=== PATIENT | female | born 1950 | race Caucasian/White ===

== ENCOUNTER → 2018-03-31 | Outpatient (CLI) | payer OTHER ==
[~2018-03-31] MED LIST: ALUMSUS2 PO; ASPI81TA28 PO; DEXT30TA7 PO; DEXTSYP41 PO; FLNIN NAE; GADAVIST IV PRN; LISI-1116 PO; OMEP40CA PO; RANI150T85 PO; TRIA37.5 PO
--- NOTE | 2018-03-31 13:51 | DIAGNOSTIC IMAGING REPORT ---
MRI OF THE BRAIN COMBO INTERNAL AUDITORY CANAL PROTOCOL CLINICAL HISTORY: Vertigo. Right-sided hearing loss. Dermatitis of the right external auditory canal. COMPARISON STUDY: CT of the brain dated 01/10/2016. TECHNIQUE: MRI of the brain was performed utilizing various T1 and T2-weighted sequences in the axial, sagittal, and coronal planes. Contrast-enhanced sequences were acquired following the administration of 11 cc of Gadavist. Additional high-resolution imaging was performed through the skull base both pre and post contrast to further assess the internal auditory canals. FINDINGS: Brain parenchyma: There is minimal subcortical and periventricular microangiopathic disease. There is no hemorrhage or mass effect. There is no restricted diffusion to suggest acute ischemia. No enhancing mass lesion is identified on the postcontrast images. Holcomb-white matter differentiation is preserved. No extra-axial fluid collection is seen. The cerebellar tonsils are normal in configuration. Ventricles, sulci, and cisterns: Normal in configuration. Internal auditory canals: There is no enhancing mass lesion identified in the cerebellopontine angle bilaterally. No mass or abnormal enhancement is identified along the course of the internal auditory canals. Fluid is noted in the right middle ear. The external auditory canals are grossly normal as visualized. Pituitary and sella: Unremarkable. Intracranial vasculature: Normal flow voids are maintained at the skull base. Orbits: The bony orbits are grossly intact. Orbital contents are normal in appearance. Sinuses and mastoids: There is a large right mastoid effusion. The left mastoid air cells are clear, as are the paranasal sinuses. Calvarium: Unremarkable. Cervical cord: Partially visualized cervical spinal cord is normal in morphology and signal intensity. IMPRESSION: 1. No acute intracranial abnormality. 2. Large right mastoid effusion. 3. Fluid is noted in the right middle ear. Electronically signed by: Abdirizak Samayoa M.D. 03/31/2018 1:50 PM Dictated Date/Time: 03/31/2018 1:40 PM
== END | disposition home or self-care (01) ==
LOC: C.MRIBC 11:57
PROVIDERS: ATTEND Physician Assistant
DX: H60.541 Acute eczematoid otitis externa, right ear (principal); H65.91 Unspecified nonsuppurative otitis media, right ear; H90.5 Unspecified sensorineural hearing loss; H90.3 Sensorineural hearing loss, bilateral

== ENCOUNTER 2021-04-01 12:12 | Observation (INO) ==
[2021-04-01] MEDS ORDERED: SODIUM CHLORIDE 0.9% 1000ML 1,000 ML IV ONE (14:10)
[2021-04-01] MEDS ORDERED: CIPROFLOXACIN / D5W 400 MG/200 ML BAG IV STA (14:10)
[2021-04-01] MEDS ORDERED: diphenhydrAMINE 50 MG/ML VIAL IV STA (14:10)
[2021-04-01] MEDS ORDERED: MoRPHine SULFATE 4 MG/ML 1 ML CARP\\VIAL IV PRN (14:10)
[2021-04-01] MEDS ORDERED: ONDANSETRON INJ 2 MG/ML 2 ML VIAL IV STA (14:10)
[2021-04-01] MEDS ORDERED: metroNIDAZOLE 500 MG/100 ML BAG IV STA (14:10)
--- NOTE | 2021-04-01 14:16 | Emergency Department Note ---
Impression & Plan Lower abdominal pain, Acute diverticulitis, Vomiting, Failure of outpatient treatment ED Provider Note NAME: SARA PARIKH AGE: 70 SEX: F : 1950 ARRIVES VIA: Walk-In INFORMANT: [Patient] ED PROVIDER(S): [Abdirizak Moon MD] CHIEF COMPLAINT: Abdominal pain HISTORY OF PRESENT ILLNESS: The patient is a 70-year-old female presents to the ER with 4 days of bilateral lower abdominal pain. The pain is worse if there is pressure applied to the abdomen or if she sits or if she walks around. The pain is a 10/10. No pain radiation. There has been some nausea and vomiting, she has had fever and chills. Patient went to her doctor's office yesterday. She had a CT scan performed showing diverticulitis. She was started on Cipro and Flagyl but, she is vomiting these medications. She was directed to come to the ED because of her current situation. Patient has not had urinary symptoms. There has been no cough or congestion or chest pain. No shortness of breath. She has never had diverticulitis before. REVIEW OF SYSTEMS: See HPI for pertinent positives and negatives. A total of ten systems were reviewed and were otherwise negative. PMHx/PSHx: See Below SOCIAL HISTORY: See Below. PHYSICAL EXAM: GENERAL: Patient is in no acute distress. HEENT: No acute trauma, normocephalic atraumatic, mucous membranes moist, no nasal congestion, no scleral icterus. NECK: No stridor, no adenopathy, no meningismus, trachea is midline. LUNGS: Clear to auscultation bilaterally, no wheeze, no rhonchi, breath sounds equal. HEART: 2/6 systolic murmur, regular rate and rhythm. ABDOMEN: Soft, significantly tender in the lower abdomen, mostly on the left, bowel sounds positive, no hernias, no peritonitis. EXTREMITIES: No cyanosis or edema, full range of motion of all the joints without pain or difficulty, no signs for acute trauma. NEUROLOGIC: Oriented x 3, no acute motor or sensory deficits, no focal weakness. SKIN: No rash, no jaundice, no diaphoresis. DIFFERENTIAL DIAGNOSIS: Appendicitis, ovarian cyst, ovarian torsion, infections, diverticulitis, UTI, obstruction, mesenteric ischemia, aortic pathology, inflammatory bowel disease, renal colic, PUD, pancreatitis, biliary pathology, hernia, volvulus, constipation, as well as other pathologies. EMERGENCY DEPARTMENT COURSE/PROCEDURES: ECG: Indication was abdominal pain. The ECG shows a normal sinus rhythm with a rate of 70. There is no ST elevation, no PVCs. The QTc is 447. Continuous Cardiac Monitoring: An order was placed for continuous cardiac monitoring. The monitor shows a rate of 76 with normal sinus rhythm. MEDICAL DECISION MAKING: There is a mild leukocytosis which could be consistent with infection. There is a normal hemoglobin and platelet count. Potassium slightly low, sodium is slightly low. No kidney failure. No concerning liver enzyme elevation. No evidence for pancreatitis. ECG shows a sinus rhythm, no acute ischemia. Cardiac enzyme testing x1 is not consistent with acute cardiac injury. Urinalysis shows evidence for some contamination, no obvious infection. Covid and influenza testing were negative. I was able to review the CT performed yest erday, a mild case of diverticulitis was seen, there was no evidence for abscess or perforation. By exam, there was no peritonitis. The patient was given IV saline, 1 L. She was given IV Zofran for nausea. She was given IV Cipro and IV Flagyl. She received IV Benadryl. She received IV morphine for pain control. The patient has acute diverticulitis. She is unable to take her medications for this diagnosis. She is vomiting. She has failed outpatient treatment. I do think hospitalization is warranted. I spoke to the patient and case management. The on-call hospitalist was consulted. Past Med/Surg History Medical History Diabetes BORDERLINE-DIET MANAGED GERD (gastroesophageal reflux disease) Hiatal hernia HTN (hypertension) Obese Tachycardia Thoracic back pain Thoracic spinal stenosis Surgical History H/O cardiac radiofrequency ablation 2012 H/O knee surgery OPEN LEFT KNEE History of cardiac cath 2003-NO STENTS NEEDED History of carpal tunnel release of both wrists R/L History of cholecystectomy History of colonoscopy History of esophagogastroduodenoscopy (EGD) History of hysterectomy History of shoulder surgery R/L History of total knee arthroplasty R/L Family History Grandmother (Paternal) Family history of diabetes mellitus Brother Family history of diabetes mellitus Social History Smoking Status: Never smoker Second Hand Exposure: No; Do You Dip or Chew Tobacco: No; Tobacco Cessation Education Requested by Patient: No Hx Alcohol Use: No Hx Substance Use: No Preferred Language: Armenian Communication Ability: Effective Visual Impairment: No Limitations Letter Of Credit Document Examiner Required: No Beliefs That Will Affect Care: None marital status: Current Living Situation: Family Current Living Situation Comment: LIVES WITH SON AND DAUGHTER IN LAW current occupational status: retired Other Information That Helps Us Care for You: No Feels Safe at Home: Yes Safety Concerns: Feels Safe At This Time Assistive Devices: Glasses Allergies Allergies Allergy/AdvReac Type Severity Reaction Status Date / Time amoxicillin [From Augmentin] Allergy Severe Rash Verified 04/01/21 17:21 clavulanic acid Allergy Severe Rash Verified 04/01/21 17:21 [From Augmentin] gabapentin Allergy Intermediate Severe rash Verified 04/01/21 17:21 hydrocodone AdvReac Severe Nausea/ Verified 04/01/21 17:21 vomiting oxycodone AdvReac Intermediate GI SYMPTOMS Verified 04/01/21 17:21 Home Meds Home Medications Medication Instructions Recorded Confirmed albuterol sulfate 2.5 mg INHALATION Q4H PRN 04/01/21 04/01/21 aspirin [Aspir-Low] 81 mg PO DAILY 04/01/21 04/01/21 ciprofloxacin HCl [Cipro] 500 mg PO BID 04/01/21 04/01/21 famotidine [Pepcid] 20 mg PO DAILY 04/01/21 04/01/21 fluticasone propionate 2 spray INTRANASAL DAILY PRN 04/01/21 04/01/21 lisinopril 5 mg PO DAILY 04/01/21 04/01/21 metoprolol succinate [Toprol XL] 12.5 mg PO DAILY 04/01/21 04/01/21 metronidazole [Flagyl] 500 mg PO TID 04/01/21 04/01/21 omeprazole 20 mg PO BID 04/01/21 04/01/21 ondansetron HCl 4 mg PO Q8H PRN 04/01/21 04/01/21 triamterene-hydrochlorothiazid 1 cap PO DAILY 04/01/21 04/01/21 Results & Data (ED) Vital Signs Vital Signs - 24 hr 04/01/21 12:18 04/01/21 14:20 04/01/21 14:29 Temperature 36.7 C Temperature Source Temporal Artery Scan Pulse Rate 76 73 72 Pulse Rate from SpO2 Sensor Pulse Rhythm Regular Pulse Strength Normal Respiratory Rate 18 16 18 Respiratory Effort / Characteristics Non-Labored Spontaneous Respiratory Depth Normal Respiratory Pattern Regular Blood Pressure 156/84 H 147/69 H Blood Pressure Mean 108 95 Blood Pressure Position Sitting Pulse Oximetry 95 Oxygen Delivery Method Room Air Room Air Room Air Sepsis Recent Fever Within 48 Hours No Sepsis New/Unexplained Change in Mental Status N/A Sepsis Action Taken by Nursing No Action Required 04/01/21 14:30 04/01/21 14:40 04/01/21 14:50 Temperature Temperature Source Pulse Rate 71 71 74 Pulse Rate from SpO2 Sensor 74 Pulse Rhythm Pulse Strength Respiratory Rate 16 23 17 Respiratory Effort / Characteristics Respiratory Depth Respiratory Pattern Blood Pressure Blood Pressure Mean Blood Pressure Position Pulse Oximetry 97 Oxygen Delivery Method Room Air Room Air Room Air Sepsis Recent Fever Within 48 Hours Sepsis New/Unexplained Change in Mental Status Sepsis Action Taken by Nursing 04/01/21 15:00 04/01/21 15:10 04/01/21 15:20 Temperature Temperature Source Pulse Rate 70 69 73 Pulse Rate from SpO2 Sensor 70 70 75 Pulse Rhythm Pulse Strength Respiratory Rate 16 18 24 Respiratory Effort / Characteristics Respiratory Depth Respiratory Pattern Blood Pressure 143/75 H Blood Pressure Mean 97 Blood Pressure Position Pulse Oximetry 97 94 93 Oxygen Delivery Method Room Air Room Air Room Air Sepsis Recent Fever Within 48 Hours Sepsis New/Unexplained Change in Mental Status Sepsis Action Taken by Nursing 04/01/21 15:30 04/01/21 15:40 04/01/21 15:50 Temperature Temperature Source Pulse Rate 70 67 71 Pulse Rate from SpO2 Sensor Pulse Rhythm Pulse Strength Respiratory Rate 21 18 23 Respiratory Effort / Characteristics Respiratory Depth Respiratory Pattern Blood Pressure Blood Pressure Mean Blood Pressure Position Pulse Oximetry Oxygen Delivery Method Room Air Room Air Room Air Sepsis Recent Fever Within 48 Hours Sepsis New/Unexplained Change in Mental Status Sepsis Action Taken by Nursing 04/01/21 16:00 04/01/21 16:01 04/01/21 16:10 Temperature Temperature Source Pulse Rate 66 67 67 Pulse Rate from SpO2 Sensor 67 Pulse Rhythm Pulse Strength Respiratory Rate 17 22 18 Respiratory Effort / Characteristics Respiratory Depth Respiratory Pattern Blood Pressure 136/91 Blood Pressure Mean 106 Blood Pressure Position Pulse Oximetry 95 Oxygen Delivery Method Room Air Room Air Room Air Sepsis Recent Fever Within 48 Hours Sepsis New/Unexplained Change in Mental Status Sepsis Action Taken by Nursing 04/01/21 16:20 04/01/21 16:30 04/01/21 16:31 Temperature Temperature Source Pulse Rate 65 69 67 Pulse Rate from SpO2 Sensor 65 69 68 Pulse Rhythm Pulse Strength Respiratory Rate 18 18 21 Respiratory Effort / Characteristics Respiratory Depth Respiratory Pattern Blood Pressure 80/64 L Blood Pressure Mean 69 Blood Pressure Position Pulse Oximetry 94 94 94 Oxygen Delivery Method Room Air Room Air Room Air Sepsis Recent Fever Within 48 Hours Sepsis New/Unexplained Change in Mental Status Sepsis Action Taken by Nursing 04/01/21 16:40 04/01/21 16:45 04/01/21 16:50 Temperature Temperature Source Pulse Rate 64 70 71 Pulse Rate from SpO2 Sensor 65 69 71 Pulse Rhythm Pulse Strength Respiratory Rate 18 16 21 Respiratory Effort / Characteristics Respiratory Depth Respiratory Pattern Blood Pressure 125/75 Blood Pressure Mean 91 Blood Pressure Position Pulse Oximetry 94 97 94 Oxygen Delivery Method Room Air Room Air Room Air Sepsis Recent Fever Within 48 Hours Sepsis New/Unexplained Change in Mental Status Sepsis Action Taken by Nursing 04/01/21 17:00 04/01/21 17:01 04/01/21 17:10 Temperature Temperature Source Pulse Rate 65 67 67 Pulse Rate from SpO2 Sensor 65 67 67 Pulse Rhythm Pulse Strength Respiratory Rate 23 19 23 Respiratory Effort / Characteristics Respiratory Depth Respiratory Pattern Blood Pressure 127/43 L Blood Pressure Mean 71 Blood Pressure Position Pulse Oximetry 98 97 97 Oxygen Delivery Method Room Air Room Air Room Air Sepsis Recent Fever Within 48 Hours Sepsis New/Unexplained Change in Mental Status Sepsis Action Taken by Nursing 04/01/21 17:20 04/01/21 17:30 04/01/21 17:31 Temperature Temperature Source Pulse Rate 64 64 64 Pulse Rate from SpO2 Sensor 64 64 63 Pulse Rhythm Pulse Strength Respiratory Rate 15 15 15 Respiratory Effort / Characteristics Respiratory Depth Respiratory Pattern Blood Pressure 138/77 Blood Pressure Mean 97 Blood Pressure Position Pulse Oximetry 95 94 95 Oxygen Delivery Method Sepsis Recent Fever Within 48 Hours Sepsis New/Unexplained Change in Mental Status Sepsis Action Taken by Nursing 04/01/21 17:40 04/01/21 17:50 04/01/21 18:00 Temperature Temperature Source Pulse Rate 66 67 68 Pulse Rate from SpO2 Sensor 66 67 68 Pulse Rhythm Pulse Strength Respiratory Rate 20 15 19 Respiratory Effort / Characteristics Respiratory Depth Respiratory Pattern Blood Pressure Blood Pressure Mean Blood Pressure Position Pulse Oximetry 93 98 96 Oxygen Delivery Method Room Air Sepsis Recent Fever Within 48 Hours Sepsis New/Unexplained Change in Mental Status Sepsis Action Taken by Nursing 04/01/21 18:01 04/01/21 18:10 04/01/21 18:20 Temperature Temperature Source Pulse Rate 68 66 69 Pulse Rate from SpO2 Sensor 67 67 Pulse Rhythm Pulse Strength Respiratory Rate 18 17 24 Respiratory Effort / Characteristics Respiratory Depth Respiratory Pattern Blood Pressure 133/71 Blood Pressure Mean 91 Blood Pressure Position Pulse Oximetry 95 94 Oxygen Delivery Method Room Air Room Air Room Air Sepsis Recent Fever Within 48 Hours Sepsis New/Unexplained Change in Mental Status Sepsis Action Taken by Nursing 04/01/21 18:30 04/01/21 18:31 04/01/21 18:32 Temperature Temperature Source Pulse Rate 69 67 67 Pulse Rate from SpO2 Sensor 68 66 67 Pulse Rhythm Pulse Strength Respiratory Rate 16 14 16 Respiratory Effort / Characteristics Respiratory Depth Respiratory Pattern Blood Pressure 142/76 H Blood Pressure Mean 98 Blood Pressure Position Pulse Oximetry 94 94 95 Oxygen Delivery Method Room Air Room Air Sepsis Recent Fever Within 48 Hours Sepsis New/Unexplained Change in Mental Status Sepsis Action Taken by [facility] Medications Current Medication List: was personally reviewed by me Laboratory Data Attestation: I reviewed the patient's lab results. Result diagrams: 04/01/21 14:34 04/01/21 14:34 Lab Results 04/01/21 04/01/21 04/01/21 Range/Units 14:34 14:34 14:34 WBC 10.87 H (4.8-10.8) K/uL RBC 4.82 (4.2-5.4) M/uL Hgb 13.2 (12.0-16.0) g/dL Hct 38.3 (37-47) % MCV 79.5 L (80-100) fL MCH 27.4 (25-34) pg MCHC 34.5 (32-36) g/dL RDW Std Deviation 37.3 (36.4-46.3) fL RDW Coeff of Howard 12.9 (11.5-14.5) % Plt Count 243 (130-400) K/uL MPV 10.4 (7.4-10.4) fL Immature Gran % (Auto) 0.2 % Neut % (Auto) 75.3 % Lymph % (Auto) 13.8 % [place] % (Auto) 9.2 % Eos % (Auto) 1.3 % Baso % (Auto) 0.2 % Neut # (Auto) 8.19 H (1.4-6.5) K/uL Lymph # (Auto) 1.50 (1.2-3.4) K/uL [place] # (Auto) 1.00 H (0.11-0.59) K/uL Eos # (Auto) 0.14 (0-0.5) K/uL Baso # (Auto) 0.02 (0-0.2) K/uL Immature Gran # (Auto) 0.02 (0.00-0.02) K/uL Sodium 132 L (136-145) mmol/L Potassium 3.4 L (3.5-5.1) mmol/L Chloride 93 L (98-107) mmol/L Carbon Dioxide 32 (21-32) mmol/L Anion Gap 7.0 (3-11) BUN 11 (7-18) mg/dl Creatinine 0.80 (0.6-1.2) mg/dl Est Cr Clr Drug Dosing 74.1 ml/min Est GFR ( Amer) 86.6 Est GFR (Non-Af Amer) 74.7 BUN/Creatinine Ratio 13.4 (10-20) Glucose 124 H (70-99) mg/dl Calcium 9.5 (8.5-10.1) mg/dl Total Bilirubin 0.9 (0.2-1) mg/dl AST 12 L (15-37) U/L ALT 21 (12-78) U/L Alkaline Phosphatase 108 (45-117) U/L Troponin I < 0.015 (0-0.045) ng/ml Total Protein 7.7 (6.4-8.2) gm/dl Albumin 3.5 (3.4-5.0) gm/dl Globulin 4.2 H (2.5-4.0) gm/dl Albumin/Globulin Ratio 0.8 L (0.9-2) Lipase 125 (73-393) U/L COVID-19 Eval Order SARS-CoV-2 (PCR) (Negative) Influenza Type A (PCR) (Neg) Influenza Type B (PCR) (Neg) RSV (RT-PCR) (Neg) 04/01/21 04/01/21 Range/Units 15:23 15:23 WBC (4.8-10.8) K/uL RBC (4.2-5.4) M/uL Hgb (12.0-16.0) g/dL Hct (37-47) % MCV (80-100) fL MCH (25-34) pg MCHC (32-36) g/dL RDW Std Deviation (36.4-46.3) fL RDW Coeff of Howard (11.5-14.5) % Plt Count (130-400) K/uL MPV (7.4-10.4) fL Immature Gran % (Auto) % Neut % (Auto) % Lymph % (Auto) % [place] % (Auto) % Eos % (Auto) % Baso % (Auto) % Neut # (Auto) (1.4-6.5) K/uL Lymph # (Auto) (1.2-3.4) K/uL [place] # (Auto) (0.11-0.59) K/uL Eos # (Auto) (0-0.5) K/uL Baso # (Auto) (0-0.2) K/uL Immature Gran # (Auto) (0.00-0.02) K/uL Sodium (136-145) mmol/L Potassium (3.5-5.1) mmol/L Chloride (98-107) mmol/L Carbon Dioxide (21-32) mmol/L Anion Gap (3-11) BUN (7-18) mg/dl Creatinine (0.6-1.2) mg/dl Est Cr Clr Drug Dosing ml/min Est GFR ( Amer) Est GFR (Non-Af Amer) BUN/Creatinine Ratio (10-20) Glucose (70-99) mg/dl Calcium (8.5-10.1) mg/dl Total Bilirubin (0.2-1) mg/dl AST (15-37) U/L ALT (12-78) U/L Alkaline Phosphatase (45-117) U/L Troponin I (0-0.045) ng/ml Total Protein (6.4-8.2) gm/dl Albumin (3.4-5.0) gm/dl Globulin (2.5-4.0) gm/dl Albumin/Globulin Ratio (0.9-2) Lipase (73-393) U/L COVID-19 Eval Order CovFluRsv at [facility] SARS-CoV-2 (PCR) NEGATIVE (Negative) Influenza Type A (PCR) Negative (Neg) Influenza Type B (PCR) Negative (Neg) RSV (RT-PCR) Negative (Neg) Administered Medications Metronidazole (Flagyl) 500 mg in 100 mls @ 100 mls/hr IV Q8 TAISHA; Protocol Stop: 04/11/21 21:59 Last Admin: 04/01/21 22:39 Dose: 100 mls/hr Documented by: [id number] Sodium Chloride (Nss 1000ml) 1,000 mls @ 80 mls/hr IV .[id number] TAISHA Stop: 04/02/21 20:37 Last Admin: 04/01/21 21:57 Dose: 80 mls/hr Documented by: [id number] Potassium Chloride (K Fermin / Wtr) 10 meq in 100 mls @ 100 mls/hr IV Q1H TAISHA Stop: 04/01/21 23:29 Last Admin: 04/01/21 22:39 Dose: 100 mls/hr Documented by: [id number] Morphine Sulfate (Morphine Sulfate 4 Mg/Ml 1 Ml Carp\Vial) 4 mg IV Q30M PRN PRN Reason: Pain Stop: 04/15/21 14:09 Last Admin: 04/01/21 14:50 Dose: 4 mg Documented by: [id number] Pantoprazole Sodium (Pantoprazole 40 Mg Tab) 40 mg PO BID TAISHA Stop: 05/01/21 20:59 Last Admin: 04/01/21 22:37 Dose: Not Given Documented by: [id number] Discontinued Medications Diphenhydramine HCl (Diphenhydramine 50 Mg/Ml Vial) 12.5 mg IV NOW STA Stop: 04/01/21 14:11 Last Admin: 04/01/21 14:50 Dose: 12.5 mg Documented by: [id number] Sodium Chloride (Nss 1000ml) 1,000 mls @ 999 mls/hr IV .[id number] ONE Stop: 04/01/21 15:10 Last Infusion: 04/01/21 15:58 Dose: 0 mls/hr Documented by: [id number] Admin: 04/01/21 14:50 Dose: 999 mls/hr Documented by: [id number] Ciprofloxacin (Cipro / D5w) 400 mg in 200 mls @ 100 mls/hr IV NOW STA; Protocol Stop: 04/01/21 16:09 Last Infusion: 04/01/21 17:04 Dose: 0 mls/hr Documented by: [id number] Admin: 04/01/21 14:57 Dose: 100 mls/hr Documented by: [id number] Metronidazole (Flagyl) 500 mg in 100 mls @ 100 mls/hr IV NOW STA Stop: 04/01/21 15:09 Last Infusion: 04/01/21 15:58 Dose: 0 mls/hr Documented by: [id number] Admin: 04/01/21 14:54 Dose: 100 mls/hr Documented by: [id number] Promethazine HCl 12.5 mg/ (Sodium Chloride) 50.5 mls @ 202 mls/hr IV TODAY@2145 ONE Stop: 04/01/21 21:59 Last Infusion: 04/01/21 22:52 Dose: 0 mls/hr Documented by: [id number] Admin: 04/01/21 21:57 Dose: 202 mls/hr Documented by: [id number] Ondansetron HCl (Ondansetron Inj 2 Mg/Ml 2 Ml Vial) 4 mg IV NOW STA Stop: 04/01/21 14:11 Last Admin: 04/01/21 14:50 Dose: 4 mg Documented by: [id number] Ondansetron HCl (Ondansetron Inj 2 Mg/Ml 2 Ml Vial) Confirm Administered Dose 4 mg .ROUTE .STK-MED ONE Stop: 04/01/21 19:34 Last Admin: 04/01/21 19:34 Dose: 4 mg Documented by: [id number] Discharge Plan Visit Data Chief Complaint: Vomiting Stated Complaint: DIVERTICULTIS, UPSET STOMACH, VOMITING, DIZZY ED Provider: Abdirizak Moon Discharge Problem: Lower abdominal pain, Acute diverticulitis, Vomiting, Failure of outpatient treatment Patient Disposition: Admitted As Inpatient Condition: Fair Discharge Instructions Interventions: ED Discharge Assessment Last Done: 04/01/21 20:13 Discharge Problem: Vomiting Qualifiers: Vomiting type: unspecified Vomiting Intractability: non-intractable Nausea presence: with nausea Qualified Code(s): R11.2 - Nausea with vomiting, unspecified
[2021-04-01 14:48] LABS: Basophils # (auto) 0.02 K/uL (0-0.2); Basophils % (auto) 0.2 %; Eosinophils # (auto) 0.14 K/uL (0-0.5); Eosinophils % (auto) 1.3 %; Hematocrit (blood only) 38.3 % (37-47); Hemoglobin 13.2 g/dL (12.0-16.0); Immature Granulocytes # (auto) 0.02 K/uL (0.00-0.02); Immature Granulocytes % (auto) 0.2 %; Lymphocytes % (auto) 13.8 %; Mean Corpuscular Hemoglobin 27.4 pg (25-34); Mean Corpuscular Hgb Conc 34.5 g/dL (32-36); Mean Corpuscular Volume 79.5 fL (80-100); Mean Platelet Volume 10.4 fL (7.4-10.4); Monocytes % (auto) 9.2 %; Neutrophils # (auto) 8.19 K/uL (1.4-6.5); Neutrophils % (auto) 75.3 %; Platelet Count 243 K/uL (130-400); RDW Coefficient of Variation 12.9 % (11.5-14.5); RDW Standard Deviation 37.3 fL (36.4-46.3); Red Blood Count 4.82 M/uL (4.2-5.4); White Blood Count 10.87 K/uL (4.8-10.8)
[2021-04-01 15:05] LABS: Albumin Level 3.5 gm/dl (3.4-5.0); BUN Creatinine Ratio 13.4 (10-20); Calcium 9.5 mg/dl (8.5-10.1); Creatinine Clr Calc Pharmacy 74.1 ml/min; Est GFR (African American) 86.6; Est GFR (Non-African American) 74.7; Potassium 3.4 mmol/L (3.5-5.1)
[2021-04-01 15:08] LABS: Albumin Globulin Ratio 0.8 (0.9-2); Bilirubin,Total 0.9 mg/dl (0.2-1); Globulin 4.2 gm/dl (2.5-4.0); Total Protein 7.7 gm/dl (6.4-8.2)
[2021-04-01 16:13] LABS: Influenza A virus by PCR Negative (Neg); Influenza B virus by PCR Negative (Neg); RSV by PCR Negative (Neg); SARS CoV2 RNA(COVID-19) InHosp NEGATIVE (Negative)
--- NOTE | 2021-04-01 16:38 | History & Physical Report ---
Date of Service April 01, 2021 Assessment & Plan (1) Diverticulitis: -Admit to med surg -CT abdomen pelvis without IV/oral contrast done on as an outpatient was reviewed, shows acute diverticulitis/colitis. No free air or fluid collection. Hepatomegaly with hepatic steatosis. -Patient has been unable to manage p.o. antibiotic due to intractable n/v, will transition to IV Cipro and Flagyl during hospital stay -Maintenance hydration with NSS at 80 mL/h -Allow clear liquid diet as tolerated -WBC was 12.62 yesterday as outpatient, 10.37 today on admission. -Potassium 3.2 and will replace, sodium slightly low likely due to hydration -Antiemetics, Tylenol -Will require GI follow-up as outpatient with a flexible sigmoidoscopy once acute diverticulitis resolved (2) HTN (hypertension): -Continue lisinopril 5 mg daily, metoprolol succinate 12.5 mg daily, Maxide 1 Daily, baby aspirin (3) Diabetes: -Last A1c of 6.2 on 11/12/2020, not on medication, diet controlled -Monitor with a.m. BMP (4) GERD (gastroesophageal reflux disease): -Continue omeprazole and famotidine (5) Obese: -BMI 44.9, diet and exercise encouraged (6) DVT prophylaxis: - teds, scds, ambulatory CODE: Full Dispo: From home, likely to remain in the hospital x 1-2 days History of Present Illness Primary Care Provider: Estefany Asencio DO This is a 70 yo F with PMHx of HTN, borderline DM, obesity with BMI of 44.9 and GERD who presents with acute onset of abdominal pain. Reports that she developed diarrhea last Wednesday into and then had worsening lower abdominal pain specifically developed on Wednesday evening. At that point she began to have a poor appetite, nausea and started vomiting. She suffered with this through the weekend and called her PCP on Wednesday morning and had worsening abdominal pain in the lower quadrants. Pt reports some sweats and chills but no documented fever at home. She was seen and had a outpatient CT abdomen/pelvis completed which showed an acute diverticulitis. She was prescribed p.o. Cipro and Flagyl and sent home. Since then the patient has continued to be nauseous, vomiting and unable to tolerate her p.o. meds. Last time she took any of her scheduled medications was yesterday morning. Abdominal pain is well controlled presently after a dose of morphine in the ER. White count slightly elevated at 10.37, potassium 3.2, sodium 132, negative Covid. Allergies Allergy/AdvReac Type Severity Reaction Status Date / Time amoxicillin [From Augmentin] Allergy Severe Rash Verified 04/01/21 17:21 clavulanic acid Allergy Severe Rash Verified 04/01/21 17:21 [From Augmentin] gabapentin Allergy Intermediate Severe rash Verified 04/01/21 17:21 hydrocodone AdvReac Severe Nausea/ Verified 04/01/21 17:21 vomiting oxycodone AdvReac Intermediate GI SYMPTOMS Verified 04/01/21 17:21 Home Medications Medication Instructions Recorded Confirmed Type albuterol sulfate 2.5 mg INHALATION Q4H PRN 04/01/21 04/01/21 History aspirin [Aspir-Low] 81 mg PO DAILY 04/01/21 04/01/21 History ciprofloxacin HCl [Cipro] 500 mg PO BID 04/01/21 04/01/21 History famotidine [Pepcid] 20 mg PO DAILY 04/01/21 04/01/21 History fluticasone propionate 2 spray INTRANASAL DAILY PRN 04/01/21 04/01/21 History lisinopril 5 mg PO DAILY 04/01/21 04/01/21 History metoprolol succinate [Toprol XL] 12.5 mg PO DAILY 04/01/21 04/01/21 History metronidazole [Flagyl] 500 mg PO TID 04/01/21 04/01/21 History omeprazole 20 mg PO BID 04/01/21 04/01/21 History ondansetron HCl 4 mg PO Q8H PRN 04/01/21 04/01/21 History triamterene-hydrochlorothiazid 1 cap PO DAILY 04/01/21 04/01/21 History Past Med/Surg History Medical History (Updated 04/01/21 @ 16:45 by Ludy Toussaint PA-C) Diabetes BORDERLINE-DIET MANAGED GERD (gastroesophageal reflux disease) Hiatal hernia HTN (hypertension) Obese Tachycardia Thoracic back pain Thoracic spinal stenosis Surgical History H/O cardiac radiofrequency ablation 2012 H/O knee surgery OPEN LEFT KNEE History of cardiac cath 2004-NO STENTS NEEDED History of carpal tunnel release of both wrists R/L History of cholecystectomy History of colonoscopy History of esophagogastroduodenoscopy (EGD) History of hysterectomy History of shoulder surgery R/L History of total knee arthroplasty R/L Family History Grandmother (Paternal) Family history of diabetes mellitus Brother Family history of diabetes mellitus Social History (Updated 12/22/19 @ 09:40 by Amy Rosenthal RN) Smoking Status: Never smoker Second Hand Exposure: Yes (IN THE PAST); Hx Alcohol Use: No Hx Substance Use: No Preferred Language: Lithuanian Communication Ability: Effective Visual Impairment: No Limitations Electrophysiology Tech Required: No Beliefs That Will Affect Care: None marital status: Current Living Situation: Family current occupational status: retired Feels Safe at Home: Yes Assistive Devices: Glasses Review of Systems Review of Systems: Constitutional: No fever, sweats or chills, + fatigue Eyes: No diplopia, no worsening or blurred vision ENT: normal hearing, no trouble swallowing Respiratory: No cough, sputum, dyspnea at rest or on exertion Cardiovascular: No chest pain, tightness or palpitations Abdomen: As per HPI. Musculoskeletal: No joint pain, calf pain, swelling Neurologic: No weakness, numbness/tingling, or balance problems Psychiatric: No anxiety or depression Skin: No rash or itch Physical Exam Physical Exam: General: awake, alert, no apparent distress, obese with BMI 44.9 Head: Normocephalic, atraumatic ENT: PERRL, EOMI, no pharyngeal exudate, mucous membranes slightly dry Chest: Clear to auscultation, on room air, no adventitious breath sounds Cardiac: Regular rate and rhythm, no murmur, no JVD, normal peripheral pulses, good capillary refill Abdominal: Hypoactive bowel sounds, soft, nondistended, tender to palpation in the RLQ and suprapubic region after given IV pain meds, no rebound or guarding Extremities: Normal inspection, no peripheral edema or erythema, calfs nontender to palpation Psych: Normal mood and affect Neuro: AAO x 3, strength intact bilaterally and rated 5/5, no motor deficits, speech is clear, no peripheral sensory deficits Results & Data Results & Data ([facility]) Vital Signs (Past 12 Hours) Vital Signs Temp Pulse Resp BP Pulse Ox 04/01/21 12:18 36.7 C 76 18 156/84 H 95 Diagnostic Findings EXAM: CT ABD/PELVIS WO IV/ORAL CONTRAST DATE and TIME: 03/31/2021 1:32 pm HISTORY CLINICAL INFORMATION: rule out appendicitis TECHNIQUE Oral Contrast: Oral contrast was not administered. IV Contrast: No IV Contrast used Abdomen/Pelvis: without intravenous contrast COMPARISON CT ABDOMEN /PELVIS WITHOUT IV CONTRAST WITHOUT ORAL dated 11/03/2016; CT ABDOMEN WITHOUT IV CONTRAST-WITHOUT ORAL dated 05/14/2015; MRI ABDOMEN-KIDNEY WITH/WITHOUT CONTRAST dated 12/03/2014 FINDINGS LOWER CHEST: HEART(visualized): Unremarkable LUNG BASES: Bibasilar atelectasis. ABDOMEN/PELVIS: LINES AND DEVICES: None LIVER: The liver is enlarged measuring 19.6 cm in craniocaudal dimension. Low attenuation suggesting steatosis. BILE DUCTS: Unremarkable GALLBLADDER: Cholecystectomy. PANCREAS: Unremarkable SPLEEN: Unremarkable ADRENALS: Stable left adrenal nodules suggesting adenomas. KIDNEYS/URETERS: Unremarkable BLADDER: Unremarkable BOWEL: Distal colonic diverticulosis. Wall thickening involving a short segment of sigmoid colon. This may be partly related to incomplete distention. There is adjacent fat stranding. No free air. Findings suggesting acute diverticulitis/colitis. The appendix is within normal limits. LYMPH NODES: Unremarkable VESSELS: Atherosclerotic vascular calcification. REPRODUCTIVE ORGANS: Hysterectomy. PERITONEUM/RETROPERITONEUM: Unremarkable ABDOMINAL WALL/SOFT TISSUES: Small fat containing epigastric ventral hernia. BONES: Degenerative osseous changes. IMPRESSION IMPRESSION 1. Findings suggesting acute diverticulitis/colitis. No free air or fluid collection. Further evaluation by sigmoidoscopy recommended after resolution of acute symptoms to exclude any underlying mass. 2. Hepatomegaly with hepatic steatosis. Findings communicated to the ordering provider through tiger text. ECG Additional Comments: 01-APR-2021 15:01:00 [facility]-EDSTAT ROUTINE RETRIEVAL Normal sinus rhythm Normal ECG When compared with ECG of 15-OCT-2019 07:20, No significant change was found 25mm/s 10mm/mV 150Hz 9.0.9 12SL 241 DANIELLE: 15 Referred by: REFERRED SELF Unconfirmed Vent. rate 70 BPM WA interval 166 ms QRS duration 90 ms QT/QTc 414/447 ms Code Status & VTE Plan Code Status Full code - discussed with patient at bedside Supervising Physician Co-Signing Physician Notes Attending addendum: The patient was seen and examined in the emergency room Has been complaining of abdominal pain with some nausea since Wednesday last She was given Cipro and Flagyl for diverticulitis as an outpatient He could not keep the medications due to nausea and vomiting and increasing abdominal pain On examination In mild pain in the emergency room Hemodynamically stable Chest-clear Heart-S1-S2, neck Abdomen-mildly tender with rebound tenderness in left lower quadrant. Also present Extremities-negative for any edema Her admission labs, EKG and imaging studies from outpatient reviewed Has acute diverticulitis without any abscess and/or perforation and failed outpatient treatment with Agree with assessment and plan as outlined above by JULIA Lloyd DR
[2021-04-01] MEDS ORDERED: ONDANSETRON INJ 2 MG/ML 2 ML VIAL ONE (19:33)
[2021-04-01 19:42] LABS: Appearance Urine Clear (Clear); Bacteria Urine Automated Negative (Negative); Bilirubin Urine Negative (Negative); Blood Urine Negative (Negative); Color Urine Dark Yellow; Glucose Urine UA Negative (Negative); Ketones Urine Trace (Negative); Leukocyte Esterase Urine 1+ (Negative); Nitrite Urine Negative (Negative); Protein Urine Negative (Negative); Specific Gravity Urine 1.015 (1.000-1.030); Urobilinogen Urine Positive (Negative); pH Urine 6.5 (4.5-7.5)
[2021-04-01] MEDS ORDERED: PROCHLORPERAZINE 10 MG in SYRINGE 8 ML IV PRN (20:38)
[2021-04-01] MEDS ORDERED: ALBUTEROL 0.083% NEBU SOLN 3 ML VIAL INH PRN (20:38)
[2021-04-01] MEDS ORDERED: FLUTICASONE PROPIONATE NA SPR 16 GM BTL PRN (20:38)
[2021-04-01] MEDS ORDERED: ONDANSETRON INJ 2 MG/ML 2 ML VIAL IV PRN (20:38)
[2021-04-01] MEDS ORDERED: PROMETHAZINE HCL 12.5 MG in SODIUM CHLORIDE 0.9% 50 ML IV ONE (21:45)
[2021-04-01] MEDS: SODIUM CHLORIDE 0.9% 1000ML 1,000 ML IV SCH (21:57)
[2021-04-01] MEDS: PANTOprazole 40 MG TAB PO SCH (22:37)
[2021-04-01] MEDS: POTASSIUM CHLORIDE / WTR 10 MEQ/100 ML PLCT IV SCH ×2 (22:39→23:44)
[2021-04-01] MEDS: metroNIDAZOLE 500 MG/100 ML BAG IV SCH (22:39)
[2021-04-02] MEDS: metroNIDAZOLE 500 MG/100 ML BAG IV SCH ×3 (05:16→20:49)
[2021-04-02] MEDS: CIPROFLOXACIN / D5W 400 MG/200 ML BAG IV SCH ×2 (05:17→17:52)
[2021-04-02 05:58] LABS: Hematocrit (blood only) 35.7 % (37-47); Hemoglobin 12.3 g/dL (12.0-16.0); Mean Corpuscular Hemoglobin 27.2 pg (25-34); Mean Corpuscular Hgb Conc 34.5 g/dL (32-36); Mean Corpuscular Volume 78.8 fL (80-100); Platelet Count 245 K/uL (130-400); RDW Coefficient of Variation 12.9 % (11.5-14.5); RDW Standard Deviation 37.2 fL (36.4-46.3); Red Blood Count 4.53 M/uL (4.2-5.4); White Blood Count 7.57 K/uL (4.8-10.8)
[2021-04-02 06:44] LABS: Albumin Level 3.1 gm/dl (3.4-5.0); BUN Creatinine Ratio 16.7 (10-20); Calcium 8.6 mg/dl (8.5-10.1); Creatinine Clr Calc Pharmacy 96.1 ml/min; Est GFR (African American) 105.9; Est GFR (Non-African American) 91.4; Estimated Average Glucose 120 mg/dl; Hemoglobin A1C 5.8 % (4.5-5.6); Potassium 3.6 mmol/L (3.5-5.1)
[2021-04-02 06:47] LABS: Albumin Globulin Ratio 0.9 (0.9-2); Bilirubin,Total 0.7 mg/dl (0.2-1); Globulin 3.6 gm/dl (2.5-4.0); Total Protein 6.7 gm/dl (6.4-8.2)
--- NOTE | 2021-04-02 08:38 | Electrocardiogram Report ---
Test Reason : Blood Pressure : / mmHG Vent. Rate : 070 BPM Atrial Rate : 070 BPM P-R Int : 166 ms QRS Dur : 090 ms QT Int : 414 ms P-R-T Axes : 077 049 053 degrees QTc Int : 447 ms Normal sinus rhythm Normal ECG When compared with ECG of 15-OCT-2019 07:20, No significant change was found Confirmed by Michael Jones ([id number]) on 04/02/2021 8:38:17 AM Referred By: REFERRED SELF Confirmed By:Michael Jones
[2021-04-02] MEDS: TRIAMTERENE/HCTZ 37.5/25MG CAP PO SCH (08:39)
[2021-04-02] MEDS: PANTOprazole 40 MG TAB PO SCH ×2 (08:39→20:49)
[2021-04-02] MEDS: lisinopril 5 MG TAB PO SCH (08:40)
[2021-04-02] MEDS: ASPIRIN 81 MG ECTAB PO SCH (08:40)
[2021-04-02] MEDS: METOPROLOL SUCC 25MG EXT REL TAB PO SCH (08:40)
[2021-04-02] MEDS: FAMOTIDINE 20 MG TAB PO SCH (08:40)
[2021-04-02] MEDS: ACETAMINOPHEN 325 MG TAB PO PRN ×2 (10:56→15:22)
[2021-04-02] MEDS: SODIUM CHLORIDE 0.9% 1000ML 1,000 ML IV SCH (11:51)
--- NOTE | 2021-04-02 12:44 | Hospitalist Progress Note ---
Date of Service April 02, 2021 Assessment & Plan (1) Diverticulitis: Present on admission with abdominal pain associated with nausea and vomiting CT abdomen pelvis without IV/oral contrast done on as an outpatient was reviewed, shows acute diverticulitis/colitis. No free air or fluid collection. Hepatomegaly with hepatic steatosis. Pt was unable to take oral cipro and flagyl due to vomiting Will continue clear liquid diet WBC normalized Continue IV Cipro and flagyl Already scheduled for outpatient colonoscopy on 05/07 Continue pain control (2) HTN (hypertension): BP stable Continue lisinopril 5 mg daily, metoprolol succinate 12.5 mg daily, Maxide 1 Daily, baby aspirin (3) Diabetes: Most recent hab1c 5.8 on 04/02/21 Not on any diabetes med Continue monitor BS (4) GERD (gastroesophageal reflux disease): Continue omeprazole and famotidine (5) Obese: BMI 44.9, diet and exercise encouraged (6) DVT prophylaxis: - teds, scds, ambulatory CODE: Full Dispo: Will discharge home once medically stable Admission and Anticipated Discharge Date Admission Date: April 01, 2021 Subjective Pt was seen and examined for follow up of diverticulitis Sitting in chair with no distress Pt said that pain improves She said that she had one episode of vomiting last night Denies any chest pain, palpitation, dizziness and SOB Review of Systems Review of Systems: All systems reviewed & are unremarkable except as noted in Subjective Physical Exam Physical Exam: General- No acute distress Head- atraumatic Eyes- PERRL, EOMI, ENT- oropharynx clear Neck- supple, no JVD Lungs- clear to auscultation Heart- regular rhythm; no murmur Abdomen- normal bowel sounds, +mild tenderness Extremities- no calf tenderness Neuro- alert, oriented x 3; PERRL, EOMI; no facial palsy; no dysarthria Skin- warm & dry Results & Data Results & Data ([facility]) Vital Signs (Past 12 Hours) Vital Signs Temp Pulse Resp BP Pulse Ox 04/02/21 07:39 36.9 C 74 20 127/76 91
[2021-04-03] MEDS: CIPROFLOXACIN / D5W 400 MG/200 ML BAG IV SCH (05:39)
[2021-04-03] MEDS: metroNIDAZOLE 500 MG/100 ML BAG IV SCH ×2 (05:39→14:28)
[2021-04-03 05:52] LABS: Hematocrit (blood only) 37.3 % (37-47); Hemoglobin 12.7 g/dL (12.0-16.0); Mean Corpuscular Volume 79.4 fL (80-100); Mean Platelet Volume 9.8 fL (7.4-10.4); Platelet Count 243 K/uL (130-400); RDW Coefficient of Variation 12.9 % (11.5-14.5); RDW Standard Deviation 37.5 fL (36.4-46.3); White Blood Count 7.31 K/uL (4.8-10.8)
[2021-04-03 06:26] LABS: Albumin Level 3.3 gm/dl (3.4-5.0); Creatinine Clr Calc Pharmacy 85.1 ml/min; Est GFR (African American) 101.7; Est GFR (Non-African American) 87.8; Potassium 3.3 mmol/L (3.5-5.1)
[2021-04-03 06:28] LABS: Albumin Globulin Ratio 0.9 (0.9-2); Bilirubin,Total 0.5 mg/dl (0.2-1); Globulin 3.7 gm/dl (2.5-4.0)
[2021-04-03] MEDS: FAMOTIDINE 20 MG TAB PO SCH (08:51)
[2021-04-03] MEDS: PANTOprazole 40 MG TAB PO SCH ×2 (08:51→20:25)
[2021-04-03] MEDS: METOPROLOL SUCC 25MG EXT REL TAB PO SCH (08:51)
[2021-04-03] MEDS: ASPIRIN 81 MG ECTAB PO SCH (08:52)
[2021-04-03] MEDS: lisinopril 5 MG TAB PO SCH (08:52)
[2021-04-03] MEDS: TRIAMTERENE/HCTZ 37.5/25MG CAP PO SCH (08:52)
[2021-04-03] MEDS ORDERED: POTASSIUM CHLORIDE CRTAB 20 MEQ TABCR PO ONE (11:00)
--- NOTE | 2021-04-03 20:18 | Hospitalist Progress Note ---
Date of Service April 03, 2021 Assessment & Plan (1) Diverticulitis: Present on admission with abdominal pain associated with nausea and vomiting CT abdomen pelvis without IV/oral contrast done on as an outpatient was reviewed, shows acute diverticulitis/colitis. No free air or fluid collection. Hepatomegaly with hepatic steatosis. Pt was unable to take oral cipro and flagyl due to vomiting Will continue clear liquid diet WBC normalized On IV Cipro and Flagyl, will transition to PO abx tonight Tolerated low fiber diet Already scheduled for outpatient colonoscopy on 05/07 Continue pain control (2) HTN (hypertension): BP stable Continue lisinopril 5 mg daily, metoprolol succinate 12.5 mg daily, Maxide 1 Daily, baby aspirin (3) Diabetes: Most recent hab1c 5.8 on 04/02/21 Not on any diabetes med Continue monitor BS (4) GERD (gastroesophageal reflux disease): Continue omeprazole and famotidine (5) Obese: BMI 44.9, diet and exercise encouraged (6) DVT prophylaxis: - teds, scds, ambulatory CODE: Full Dispo: Plan to discharge home tomorrow Admission and Anticipated Discharge Date Admission Date: April 01, 2021 Subjective Pt was seen and examined for follow up of diverticulitis Sitting in chair with no distress Pt said that she does not have any pain She said that she tolerated diet with no distress Denies any chest pain, palpitation, dizziness and SOB Review of Systems Review of Systems: All systems reviewed & are unremarkable except as noted in Subjective Physical Exam Physical Exam: General- No acute distress Head- atraumatic Eyes- PERRL, EOMI, ENT- oropharynx clear Neck- supple, no JVD Lungs- clear to auscultation Heart- regular rhythm; no murmur Abdomen- normal bowel sounds, +mild tenderness Extremities- no calf tenderness Neuro- alert, oriented x 3; PERRL, EOMI; no facial palsy; no dysarthria Skin- warm & dry Results & Data Results & Data ([facility]) Vital Signs (Past 12 Hours) Vital Signs Temp Pulse Resp BP Pulse Ox 04/03/21 15:12 37.1 C 67 16 132/75 96
[2021-04-03] MEDS: metroNIDAZOLE 500 MG TAB PO SCH (20:25)
[2021-04-03] MEDS: CIPROFLOXACIN 500 MG TAB PO SCH (20:26)
[2021-04-04 07:58] LABS: Hematocrit (blood only) 35.9 % (37-47); Hemoglobin 12.6 g/dL (12.0-16.0); Mean Corpuscular Hemoglobin 27.5 pg (25-34); Mean Corpuscular Hgb Conc 35.1 g/dL (32-36); Mean Corpuscular Volume 78.4 fL (80-100); Mean Platelet Volume 10.1 fL (7.4-10.4); Platelet Count 254 K/uL (130-400); RDW Coefficient of Variation 12.8 % (11.5-14.5); RDW Standard Deviation 36.5 fL (36.4-46.3); Red Blood Count 4.58 M/uL (4.2-5.4); White Blood Count 11.25 K/uL (4.8-10.8)
[2021-04-04 08:27] LABS: Albumin Level 3.4 gm/dl (3.4-5.0); BUN Creatinine Ratio 8.3 (10-20); Calcium 9.3 mg/dl (8.5-10.1); Creatinine Clr Calc Pharmacy 87.6 ml/min; Est GFR (African American) 102.7; Est GFR (Non-African American) 88.6; Potassium 3.2 mmol/L (3.5-5.1)
[2021-04-04 08:30] LABS: Albumin Globulin Ratio 0.9 (0.9-2); Bilirubin,Total 0.6 mg/dl (0.2-1); Globulin 3.8 gm/dl (2.5-4.0); Total Protein 7.2 gm/dl (6.4-8.2)
[2021-04-04] MEDS: PANTOprazole 40 MG TAB PO SCH (08:30)
[2021-04-04] MEDS: ASPIRIN 81 MG ECTAB PO SCH (08:31)
[2021-04-04] MEDS: FAMOTIDINE 20 MG TAB PO SCH (08:31)
[2021-04-04] MEDS: TRIAMTERENE/HCTZ 37.5/25MG CAP PO SCH (08:34)
[2021-04-04] MEDS: METOPROLOL SUCC 25MG EXT REL TAB PO SCH (08:34)
[2021-04-04] MEDS: CIPROFLOXACIN 500 MG TAB PO SCH (08:35)
[2021-04-04] MEDS: lisinopril 5 MG TAB PO SCH (08:35)
[2021-04-04] MEDS: metroNIDAZOLE 500 MG TAB PO SCH ×2 (08:36→14:29)
[2021-04-04] MEDS ORDERED: ONDANSETRON 4 MG OD TAB PO PRN (10:22)
[2021-04-04] MEDS ORDERED: POTASSIUM CHLORIDE CRTAB 20 MEQ TABCR PO STA (10:32)
--- NOTE | 2021-04-04 14:55 | Hospitalist Progress Note ---
Date of Service April 04, 2021 Assessment & Plan (1) Diverticulitis: Present on admission with abdominal pain associated with nausea and vomiting CT abdomen pelvis without IV/oral contrast done on as an outpatient was reviewed, shows acute diverticulitis/colitis. No free air or fluid collection. Hepatomegaly with hepatic steatosis. Pt was unable to take oral cipro and flagyl due to vomiting Will continue clear liquid diet WBC normalized IV Cipro and Flagyl was transition to PO abx yesterday Tolerated low fiber diet Already scheduled for outpatient colonoscopy on 05/07 Clinically improves significantly (2) Hypokalemia: K 3.2 today K replaced Continue K supplement Check BMP in 1 week (3) HTN (hypertension): BP stable Continue lisinopril 5 mg daily, metoprolol succinate 12.5 mg daily, Maxide 1 Daily, baby aspirin (4) Diabetes: Most recent hab1c 5.8 on 04/02/21 Not on any diabetes med Continue monitor BS (5) GERD (gastroesophageal reflux disease): Continue omeprazole and famotidine (6) Obese: BMI 44.9, diet and exercise encouraged (7) DVT prophylaxis: - teds, scds, ambulatory CODE: Full Dispo: Plan to discharge home today Admission and Anticipated Discharge Date Admission Date: April 01, 2021 Subjective Pt was seen and examined for follow up of diverticulitis Sitting in chair with no distress Pt said that she had some nausea early this morning, but that helped after the zofran She said that she tolerated diet with no distress She would like to go home today Denies any chest pain, palpitation, dizziness and SOB Review of Systems Review of Systems: All systems reviewed & are unremarkable except as noted in Subjective Physical Exam Physical Exam: General- No acute distress Head- atraumatic Eyes- PERRL, EOMI, ENT- oropharynx clear Neck- supple, no JVD Lungs- clear to auscultation Heart- regular rhythm; no murmur Abdomen- normal bowel sounds, +mild tenderness Extremities- no calf tenderness Neuro- alert, oriented x 3; PERRL, EOMI; no facial palsy; no dysarthria Skin- warm & dry Results & Data Results & Data ([facility]) Vital Signs (Past 12 Hours) Vital Signs Temp Pulse Resp BP Pulse Ox Pulse Ox 04/04/21 08:34 85 150/83 H 96 04/04/21 07:25 155/90 H 04/04/21 07:23 37.1 C 83 16 96
--- NOTE | 2021-04-06 07:38 | Discharge Summary ---
Date of Service April 04, 2021 Admission HPI Per Admitting Provider This is a 70 yo F with PMHx of HTN, borderline DM, obesity with BMI of 44.9 and GERD who presents with acute onset of abdominal pain. Reports that she developed diarrhea last Wednesday into and then had worsening lower abdominal pain specifically developed on Wednesday evening. At that point she began to have a poor appetite, nausea and started vomiting. She suffered with this through the weekend and called her PCP on Wednesday morning and had worsening abdominal pain in the lower quadrants. Pt reports some sweats and chills but no documented fever at home. She was seen and had a outpatient CT abdomen/pelvis completed which showed an acute diverticulitis. She was prescribed p.o. Cipro and Flagyl and sent home. Since then the patient has continued to be nauseous, vomiting and unable to tolerate her p.o. meds. Last time she took any of her scheduled medications was yesterday morning. Abdominal pain is well controlled presently after a dose of morphine in the ER. White count slightly elevated at 10.37, potassium 3.2, sodium 132, negative Covid. Admission Exam Per Admitting Provider General: awake, alert, no apparent distress, obese with BMI 44.9 Head: Normocephalic, atraumatic ENT: PERRL, EOMI, no pharyngeal exudate, mucous membranes slightly dry Chest: Clear to auscultation, on room air, no adventitious breath sounds Cardiac: Regular rate and rhythm, no murmur, no JVD, normal peripheral pulses, good capillary refill Abdominal: Hypoactive bowel sounds, soft, nondistended, tender to palpation in the RLQ and suprapubic region after given IV pain meds, no rebound or guarding Extremities: Normal inspection, no peripheral edema or erythema, calfs nontender to palpation Psych: Normal mood and affect Neuro: AAO x 3, strength intact bilaterally and rated 5/5, no motor deficits, speech is clear, no peripheral sensory deficits Principal Diagnosis Diverticulitis: HTN (hypertension): Diabetes: GERD (gastroesophageal reflux disease): Discharge Exam General- No acute distress Head- atraumatic Eyes- PERRL, EOMI, ENT- oropharynx clear Neck- supple, no JVD Lungs- clear to auscultation Heart- regular rhythm; no murmur Abdomen- normal bowel sounds, +mild tenderness Extremities- no calf tenderness Neuro- alert, oriented x 3; PERRL, EOMI; no facial palsy; no dysarthria Skin- warm & dry Discharge Data Allergies Allergy/AdvReac Type Severity Reaction Status Date / Time amoxicillin [From Augmentin] Allergy Severe Rash Verified 04/05/21 23:21 clavulanic acid Allergy Severe Rash Verified 04/05/21 23:21 [From Augmentin] gabapentin Allergy Intermediate Severe rash Verified 04/05/21 23:21 hydrocodone AdvReac Severe Nausea/ Verified 04/05/21 23:21 vomiting oxycodone AdvReac Intermediate GI SYMPTOMS Verified 04/05/21 23:21 Consultations 04/01/21 16:37 ED Decision to Admit Stat Hospital Course (1) Diverticulitis: Present on admission with abdominal pain associated with nausea and vomiting CT abdomen pelvis without IV/oral contrast done on as an outpatient was reviewed, shows acute diverticulitis/colitis. No free air or fluid collection. Hepatomegaly with hepatic steatosis. Pt was unable to take oral cipro and flagyl due to vomiting Will continue clear liquid diet WBC normalized IV Cipro and Flagyl was transition to PO abx yesterday Tolerated low fiber diet Already scheduled for outpatient colonoscopy on 05/07 Clinically improves significantly (2) Hypokalemia: K 3.2 today K replaced Continue K supplement Check BMP in 1 week (3) HTN (hypertension): BP stable Continue lisinopril 5 mg daily, metoprolol succinate 12.5 mg daily, Maxide 1 Daily, baby aspirin (4) Diabetes: Most recent hab1c 5.8 on 04/02/21 Not on any diabetes med Continue monitor BS (5) GERD (gastroesophageal reflux disease): Continue omeprazole and famotidine (6) Obese: BMI 44.9, diet and exercise encouraged (7) DVT prophylaxis: - teds, scds, ambulatory CODE: Full Dispo: Plan to discharge home today Total Time Total Time Spent Total Time Spent (In Minutes): 35 minutes Total Time Includes: Examination of the Patient, Discharge Planning, Medication Reconciliation, Communication With Other Providers and Other Discharge Plan Discharge Items Patient Disposition: Home - Self-Care Reason For Visit: DIVERTICULITIS Discharge Diagnosis: Diverticulitis: HTN (hypertension): Diabetes: GERD (gastroesophageal reflux disease): Condition on Discharge: Fair Activity: Resume your previous activity Non-emergency 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 Asencio on 04/10/2021 at 11:10 AM at the [facility] Follow up with gastroenterology for the colonoscopy scheduled for next month Complete the course of the antibiotic (last day Wednesday ) Increase potassium intake in your diet Check BMP in 1 week to monitor your electrolytes Seek medical attention if your symptoms reoccur or if you develop a fever Pending Studies at Discharge: No Stand-Alone Forms: My Bromium, Smoking Cessation Medications and DC Order Prescriptions: New ondansetron 4 mg Tablet,Disintegrating 4 mg PO Q8H PRN (Reason: nausea and vomiting) Qty: 20 RF: 0 potassium chloride 10 mEq tablet extended release 10 meq PO DAILY Qty: 30 RF: 0 Continued albuterol sulfate 2.5 mg /3 mL (0.083 %) Solution For Nebulization 2.5 mg INHALATION Q4H PRN (Reason: Shortness Of Breath Or Wheezing) RF: 0 ondansetron HCl 4 mg Tablet 4 mg PO Q8H PRN (Reason: Nausea) RF: 0 metronidazole [Flagyl] 500 mg tablet 500 mg PO TID RF: 0 ciprofloxacin HCl [Cipro] 500 mg tablet 500 mg PO BID RF: 0 aspirin 81 mg Tablet,Delayed Release (Dr/Ec) 81 mg PO DAILY RF: 0 triamterene-hydrochlorothiazid 37.5-25 mg capsule 1 cap PO DAILY RF: 0 famotidine [Pepcid] 20 mg tablet 20 mg PO DAILY RF: 0 omeprazole 20 mg capsule,delayed release(DR/EC) 20 mg PO BID RF: 0 lisinopril 5 mg tablet 5 mg PO DAILY RF: 0 metoprolol succinate [Toprol XL] 25 mg tablet extended release 24 hr 12.5 mg PO DAILY RF: 0 fluticasone propionate 50 mcg/actuation spray,suspension 2 spray INTRANASAL DAILY PRN (Reason: ALLERGIES) RF: 0 Discharge Orders: Discharge Order (Routine); Ordered 04/04/21 Ordered By: Nathan Landrum/Other Patient Handouts: Diverticulosis Diverticulitis, Discharge Instructions for ... Admission Data Admit Date/Time: 04/01/21 18:39 Attending Provider: Nathan Pedroza Admit Provider: Kade Bustos Primary Care Provider: Estefany Asencio Other Providers: Kade Bustos Other Interventions: Discharge Summary Assessment (RN) Last Done: 04/04/21 15:10
== END 2021-04-04 16:18 | disposition home or self-care (01) ==
LOC: ED 12:12 → SUATTDRO 18:39 → 3N 18:39 → INTOOBSV 18:39 → 3N 20:13

== ENCOUNTER 2021-04-05 22:56 | Observation (INO) ==
[2021-04-05] MEDS ORDERED: SODIUM CHLORIDE 0.9% 500 ML IV STA (23:26)
[2021-04-05] MEDS ORDERED: ONDANSETRON INJ 2 MG/ML 2 ML VIAL IV STA (23:26)
[2021-04-05 23:37] LABS: Basophils # (auto) 0.02 K/uL (0-0.2); Basophils % (auto) 0.2 %; Eosinophils % (auto) 0.9 %; Hematocrit (blood only) 37.2 % (37-47); Hemoglobin 12.8 g/dL (12.0-16.0); Immature Granulocytes # (auto) 0.02 K/uL (0.00-0.02); Immature Granulocytes % (auto) 0.2 %; Lymphocytes # (auto) 1.13 K/uL (1.2-3.4); Lymphocytes % (auto) 9.7 %; Mean Corpuscular Hemoglobin 27.5 pg (25-34); Mean Corpuscular Hgb Conc 34.4 g/dL (32-36); Mean Platelet Volume 9.9 fL (7.4-10.4); Monocytes # (auto) 1.49 K/uL (0.11-0.59); Monocytes % (auto) 12.8 %; Neutrophils % (auto) 76.2 %; Platelet Count 288 K/uL (130-400); RDW Coefficient of Variation 12.9 % (11.5-14.5); RDW Standard Deviation 37.5 fL (36.4-46.3); Red Blood Count 4.65 M/uL (4.2-5.4); White Blood Count 11.66 K/uL (4.8-10.8)
[2021-04-05 23:56] LABS: Albumin Level 3.4 gm/dl (3.4-5.0); BUN Creatinine Ratio 11.9 (10-20); Calcium 9.2 mg/dl (8.5-10.1); Est GFR (African American) 102.7; Est GFR (Non-African American) 88.6; Potassium 3.4 mmol/L (3.5-5.1)
[2021-04-05 23:59] LABS: Albumin Globulin Ratio 0.8 (0.9-2); Bilirubin,Total 0.5 mg/dl (0.2-1); Globulin 4.2 gm/dl (2.5-4.0); Total Protein 7.6 gm/dl (6.4-8.2)
[2021-04-06] MEDS ORDERED: fentaNYL citrate 100 MCG/2 ML VIAL IV STA ×2 (00:09→01:26)
[2021-04-06] MEDS ORDERED: FAMOTIDINE 20MG IV PUSH 20 MG/5 ML SYR IV STA (00:09)
--- NOTE | 2021-04-06 00:11 | Emergency Department Note ---
Impression & Plan Epigastric abdominal pain, Nausea ED Provider Note NAME: SARA PARIKH AGE: 70 SEX: F ARRIVES VIA: Walk-In INFORMANT: Patient ED PROVIDER(S): Jacquelyn Buckley DO CHIEF COMPLAINT: Nausea and epigastric pain PLAN: Disposition: Admitted to the [facility] service Condition: Stable MEDICAL DECISION MAKING: This is a 70-year-old female patient who was discharged from the hospital yesterday after being admitted for diverticulitis. The patient presents now with intractable nausea and epigastric abdominal pain that radiates him up into her chest. The patient does not have much oral intake except for applesauce when she is taking Cipro and Flagyl. She believes that the antibiotics are making her nauseated. The patient was given multiple doses of IV antiemetics and a dose of IV fentanyl for epigastric abdominal pain. Patient states that the epigastric pain has subsided but the nausea persists. Patient had also complained that the pain was radiating up into her chest. I did add on a twelve-lead EKG and a troponin. These were both unremarkable. [facility]. Triage Nursing notes reviewed and agree them. Prior medical records reviewed Vital Signs: reviewed and remarkable for hypertension Differential diagnosis: Pancreatitis, GERD, persistent diverticulitis, bowel perforation, medication side effects, ER treatment provided: IV fentanyl x2, IV Zofran, IV Pepcid, IV Phenergan Diagnostics interpreted by me: ECG: Normal sinus rhythm at a rate of [address] segment elevation or signs of ischemia. There is no ectopy. QTC is 445 ms. Cardiac Monitoring: Normal sinus rhythm at a rate of 78 Laboratory studies: See below Imaging studies: As per my interpretation Chest x-ray: No acute pulmonary infiltrates or consolidations. HPI: 70/F arrives for evaluation of epigastric pain and nausea. The patient was discharged yesterday from the hospital after an inpatient stay on IV antibiotics for diverticulitis. The patient has had no significant oral intake. She has been using applesauce to take her Cipro and Flagyl. She has significant nausea as a result of taking the antibiotics. Patient describes epigastric abdominal pain and significant bloating. ROS: See above HPI for pertinent positives & negatives. A total of 10 systems reviewed and were otherwise negative. PAST MEDICAL HISTORY:See Below PAST SURGICAL HISTORY:See Below FAMILY HISTORY:See Below SOCIAL HISTORY:See Below HOME MEDICATIONS:See Below ALLERGIES:See Below VITALS:See Below PHYSICAL EXAMINATION: HEENT: Head - normocephalic and atraumatic Pupils are equal, round, and reactive to light. Extraocular eye muscles are intact, and sclera are anicteric. Nose - moist nasal mucosa without discharge. Mouth - moist buccal mucosa. Oropharynx is nonerythematous and there is no tonsillar exudate or edema noted. Neck: Supple; no JVD, nuchal rigidity, cervical lymphadenopathy, or auscultated bruits. Heart: Regular rate and rhythm. There is a normal S1 and S2 with no murmurs, clicks, or gallops appreciated. Lungs: Clear to auscultation bilaterally with no wheezes, rales, or rhonchi. Abdomen: Soft, moderately tender to palpation in the epigastrium. The abdomen is moderately distended, with good bowel sounds. There are no palpable pulsatile masses or hepatosplenomegaly. There is no guarding, rigidity, or rebound noted. Extremities: No evidence of cyanosis, clubbing, or edema. There are easily palpable peripheral pulses. Skin: warm and dry with good turgor and no rashes. ED COURSE:2310:Patient was evaluated in room 11. A complete history and physical was performed. Previous electronic medical records were reviewed. An order was placed for continuous cardiac monitoring. Patient was in a normal sinus rhythm at a rate of 73. A twelve-lead EKG was obtained as described above. The patient was given 4 mg of IV Zofran for the nausea and bolused with IV normal saline solution. The patient was also given 50 mcg of IV fentanyl for pain. A chest x-ray was performed. Patient continued to complain nausea and was given a dose of IV Phenergan. I reevaluated the patient multiple times. She would have episodes where she would feel improvement but then would immediately feel nauseated again. Patient states that overall the pain she had associated with a diverticulitis in the left lower quadrant of the abdomen had resolved upon discharge from the hospital yesterday but now she is left with intractable nausea and some mild epigastric abdominal pain. I discussed the case with the [facility] hospitalist and they will evaluate for further management. Jacquelyn Buckley DO Past Med/Surg History Medical History (Updated 04/06/21 @ 08:43 by Jacquelyn Buckley DO) Diabetes BORDERLINE-DIET MANAGED GERD (gastroesophageal reflux disease) Hiatal hernia HTN (hypertension) Obese Tachycardia Thoracic back pain Thoracic spinal stenosis Vomiting Surgical History H/O cardiac radiofrequency ablation 2012 H/O knee surgery OPEN LEFT KNEE History of cardiac cath 2003-NO STENTS NEEDED History of carpal tunnel release of both wrists R/L History of cholecystectomy History of colonoscopy History of esophagogastroduodenoscopy (EGD) History of hysterectomy History of shoulder surgery R/L History of total knee arthroplasty R/L Family History Grandmother (Paternal) Family history of diabetes mellitus Brother Family history of diabetes mellitus Social History Smoking Status: Never smoker Second Hand Exposure: No; Hx Alcohol Use: No Hx Substance Use: No Preferred Language: Montenegrin Communication Ability: Effective Visual Impairment: No Limitations [employer] Professor Required: No Beliefs That Will Affect Care: None marital status: Current Living Situation: Family Current Living Situation Comment: LIVES WITH SON AND DAUGHTER IN LAW current occupational status: retired Feels Safe at Home: Yes Assistive Devices: None Allergies Allergies Allergy/AdvReac Type Severity Reaction Status Date / Time amoxicillin [From Augmentin] Allergy Severe Rash Verified 04/05/21 23:21 clavulanic acid Allergy Severe Rash Verified 04/05/21 23:21 [From Augmentin] gabapentin Allergy Intermediate Severe rash Verified 04/05/21 23:21 hydrocodone AdvReac Severe Nausea/ Verified 04/05/21 23:21 vomiting oxycodone AdvReac Intermediate GI SYMPTOMS Verified 04/05/21 23:21 Home Meds Home Medications Medication Instructions Recorded Confirmed albuterol sulfate 2.5 mg INHALATION Q4H PRN 04/01/21 04/05/21 aspirin 81 mg PO DAILY 04/01/21 04/05/21 ciprofloxacin HCl [Cipro] 500 mg PO BID 04/01/21 04/05/21 famotidine [Pepcid] 20 mg PO DAILY 04/01/21 04/05/21 fluticasone propionate 2 spray INTRANASAL DAILY PRN 04/01/21 04/05/21 lisinopril 5 mg PO DAILY 04/01/21 04/05/21 metoprolol succinate [Toprol XL] 12.5 mg PO DAILY 04/01/21 04/05/21 metronidazole [Flagyl] 500 mg PO TID 04/01/21 04/05/21 omeprazole 20 mg PO BID 04/01/21 04/05/21 ondansetron HCl 4 mg PO Q8H PRN 04/01/21 04/05/21 triamterene-hydrochlorothiazid 1 cap PO DAILY 04/01/21 04/05/21 Previous Rx's Medication Instructions Recorded ondansetron 4 mg PO Q8H PRN #20 tab 04/04/21 potassium chloride 10 meq PO DAILY #30 tab 04/04/21 Results & Data (ED) Vital Signs Vital Signs - 24 hr 04/05/21 23:02 04/06/21 00:00 04/06/21 00:12 Temperature 36.6 C Temperature Source Oral Pulse Rate 78 67 Pulse Rate [Finger] 70 Pulse Rate from SpO2 Sensor 67 Pulse Rhythm [Finger] Regular Respiratory Rate 20 18 17 Respiratory Effort / Characteristics Non-Labored Spontaneous Respiratory Depth Normal Respiratory Pattern Regular Blood Pressure 161/77 H 113/76 Blood Pressure [Right Arm] 113/76 Blood Pressure Mean 105 88 Blood Pressure Mean [Right Arm] 88 Blood Pressure Position [Right Arm] Lying Pulse Oximetry 96 96 91 Oxygen Delivery Method Room Air Room Air Sepsis Recent Fever Within 48 Hours No Sepsis New/Unexplained Change in Mental Status N/A Sepsis Action Taken by Nursing No Action Required 04/06/21 01:01 04/06/21 01:30 04/06/21 02:00 Temperature Temperature Source Pulse Rate 66 77 75 Pulse Rate [Finger] Pulse Rate from SpO2 Sensor 66 76 Pulse Rhythm [Finger] Respiratory Rate 15 18 21 Respiratory Effort / Characteristics Respiratory Depth Respiratory Pattern Blood Pressure 140/72 152/91 H 149/71 H Blood Pressure [Right Arm] Blood Pressure Mean 94 111 97 Blood Pressure Mean [Right Arm] Blood Pressure Position [Right Arm] Pulse Oximetry 97 95 96 Oxygen Delivery Method Sepsis Recent Fever Within 48 Hours Sepsis New/Unexplained Change in Mental Status Sepsis Action Taken by Nursing 04/06/21 03:16 04/06/21 05:01 04/06/21 05:02 Temperature Temperature Source Pulse Rate 67 67 Pulse Rate [Finger] 77 Pulse Rate from SpO2 Sensor Pulse Rhythm [Finger] Respiratory Rate 18 21 17 Respiratory Effort / Characteristics Non-Labored Spontaneous Respiratory Depth Normal Respiratory Pattern Regular Blood Pressure 138/66 Blood Pressure [Right Arm] 159/77 H Blood Pressure Mean 90 Blood Pressure Mean [Right Arm] 104 Blood Pressure Position [Right Arm] Sitting Pulse Oximetry 98 96 95 Oxygen Delivery Method Room Air Room Air Sepsis Recent Fever Within 48 Hours Sepsis New/Unexplained Change in Mental Status Sepsis Action Taken by Nursing 04/06/21 05:38 Temperature Temperature Source Pulse Rate 80 Pulse Rate [Finger] Pulse Rate from SpO2 Sensor Pulse Rhythm [Finger] Respiratory Rate 12 Respiratory Effort / Characteristics Respiratory Depth Respiratory Pattern Blood Pressure Blood Pressure [Right Arm] Blood Pressure Mean Blood Pressure Mean [Right Arm] Blood Pressure Position [Right Arm] Pulse Oximetry 95 Oxygen Delivery Method Sepsis Recent Fever Within 48 Hours Sepsis New/Unexplained Change in Mental Status Sepsis Action Taken by Nursing Laboratory Data Result diagrams: 04/05/21 23:26 04/05/21 23:26 Lab Results 04/05/21 04/05/21 04/05/21 Range/Units 23:26 23:26 23:26 WBC 11.66 H (4.8-10.8) K/uL RBC 4.65 (4.2-5.4) M/uL Hgb 12.8 (12.0-16.0) g/dL Hct 37.2 (37-47) % MCV 80.0 (80-100) fL MCH 27.5 (25-34) pg MCHC 34.4 (32-36) g/dL RDW Std Deviation 37.5 (36.4-46.3) fL RDW Coeff of Howard 12.9 (11.5-14.5) % Plt Count 288 (130-400) K/uL MPV 9.9 (7.4-10.4) fL Immature Gran % (Auto) 0.2 % Neut % (Auto) 76.2 % Lymph % (Auto) 9.7 % Sebastian % (Auto) 12.8 % Eos % (Auto) 0.9 % Baso % (Auto) 0.2 % Neut # (Auto) 8.90 H (1.4-6.5) K/uL Lymph # (Auto) 1.13 L (1.2-3.4) K/uL Sebastian # (Auto) 1.49 H (0.11-0.59) K/uL Eos # (Auto) 0.10 (0-0.5) K/uL Baso # (Auto) 0.02 (0-0.2) K/uL Immature Gran # (Auto) 0.02 (0.00-0.02) K/uL APTT (21.0-31.0) Seconds PTT Ratio Sodium 129 L (136-145) mmol/L Potassium 3.4 L (3.5-5.1) mmol/L Chloride 93 L (98-107) mmol/L Carbon Dioxide 27 (21-32) mmol/L Anion Gap 9.0 (3-11) BUN 8 (7-18) mg/dl Creatinine 0.68 (0.6-1.2) mg/dl Est Cr Clr Drug Dosing 87.0 ml/min Est GFR ( Amer) 102.7 Est GFR (Non-Af Amer) 88.6 BUN/Creatinine Ratio 11.9 (10-20) Glucose 115 H (70-99) mg/dl Osmolality 266 L (280-300) mOsm/kg Calcium 9.2 (8.5-10.1) mg/dl Magnesium 1.7 L (1.8-2.4) mg/dl Total Bilirubin 0.5 (0.2-1) mg/dl AST 22 (15-37) U/L ALT 30 (12-78) U/L Alkaline Phosphatase 93 (45-117) U/L Troponin I (0-0.045) ng/ml Total Protein 7.6 (6.4-8.2) gm/dl Albumin 3.4 (3.4-5.0) gm/dl Globulin 4.2 H (2.5-4.0) gm/dl Albumin/Globulin Ratio 0.8 L (0.9-2) Lipase 87 (73-393) U/L TSH 2.190 (0.300-4.500) uIu/ml COVID-19 Eval Order SARS-CoV-2 (PCR) (Negative) Influenza Type A (PCR) (Neg) Influenza Type B (PCR) (Neg) RSV (RT-PCR) (Neg) 04/05/21 04/06/21 04/06/21 Range/Units 23:26 01:00 02:40 WBC (4.8-10.8) K/uL RBC (4.2-5.4) M/uL Hgb (12.0-16.0) g/dL Hct (37-47) % MCV (80-100) fL MCH (25-34) pg MCHC (32-36) g/dL RDW Std Deviation (36.4-46.3) fL RDW Coeff of Howard (11.5-14.5) % Plt Count (130-400) K/uL MPV (7.4-10.4) fL Immature Gran % (Auto) % Neut % (Auto) % Lymph % (Auto) % Sebastian % (Auto) % Eos % (Auto) % Baso % (Auto) % Neut # (Auto) (1.4-6.5) K/uL Lymph # (Auto) (1.2-3.4) K/uL Sebastian # (Auto) (0.11-0.59) K/uL Eos # (Auto) (0-0.5) K/uL Baso # (Auto) (0-0.2) K/uL Immature Gran # (Auto) (0.00-0.02) K/uL APTT 26.8 (21.0-31.0) Seconds PTT Ratio 1.0 Sodium (136-145) mmol/L Potassium (3.5-5.1) mmol/L Chloride (98-107) mmol/L Carbon Dioxide (21-32) mmol/L Anion Gap (3-11) BUN (7-18) mg/dl Creatinine (0.6-1.2) mg/dl Est Cr Clr Drug Dosing ml/min Est GFR ( Amer) Est GFR (Non-Af Amer) BUN/Creatinine Ratio (10-20) Glucose (70-99) mg/dl Osmolality (280-300) mOsm/kg Calcium (8.5-10.1) mg/dl Magnesium (1.8-2.4) mg/dl Total Bilirubin (0.2-1) mg/dl AST (15-37) U/L ALT (12-78) U/L Alkaline Phosphatase (45-117) U/L Troponin I < 0.015 (0-0.045) ng/ml Total Protein (6.4-8.2) gm/dl Albumin (3.4-5.0) gm/dl Globulin (2.5-4.0) gm/dl Albumin/Globulin Ratio (0.9-2) Lipase (73-393) U/L TSH (0.300-4.500) uIu/ml COVID-19 Eval Order CovFluRsv at [facility] SARS-CoV-2 (PCR) (Negative) Influenza Type A (PCR) (Neg) Influenza Type B (PCR) (Neg) RSV (RT-PCR) (Neg) 04/06/21 Range/Units 02:40 WBC (4.8-10.8) K/uL RBC (4.2-5.4) M/uL Hgb (12.0-16.0) g/dL Hct (37-47) % MCV (80-100) fL MCH (25-34) pg MCHC (32-36) g/dL RDW Std Deviation (36.4-46.3) fL RDW Coeff of Howard (11.5-14.5) % Plt Count (130-400) K/uL MPV (7.4-10.4) fL Immature Gran % (Auto) % Neut % (Auto) % Lymph % (Auto) % Sebastian % (Auto) % Eos % (Auto) % Baso % (Auto) % Neut # (Auto) (1.4-6.5) K/uL Lymph # (Auto) (1.2-3.4) K/uL Sebastian # (Auto) (0.11-0.59) K/uL Eos # (Auto) (0-0.5) K/uL Baso # (Auto) (0-0.2) K/uL Immature Gran # (Auto) (0.00-0.02) K/uL APTT (21.0-31.0) Seconds PTT Ratio Sodium (136-145) mmol/L Potassium (3.5-5.1) mmol/L Chloride (98-107) mmol/L Carbon Dioxide (21-32) mmol/L Anion Gap (3-11) BUN (7-18) mg/dl Creatinine (0.6-1.2) mg/dl Est Cr Clr Drug Dosing ml/min Est GFR ( Amer) Est GFR (Non-Af Amer) BUN/Creatinine Ratio (10-20) Glucose (70-99) mg/dl Osmolality (280-300) mOsm/kg Calcium (8.5-10.1) mg/dl Magnesium (1.8-2.4) mg/dl Total Bilirubin (0.2-1) mg/dl AST (15-37) U/L ALT (12-78) U/L Alkaline Phosphatase (45-117) U/L Troponin I (0-0.045) ng/ml Total Protein (6.4-8.2) gm/dl Albumin (3.4-5.0) gm/dl Globulin (2.5-4.0) gm/dl Albumin/Globulin Ratio (0.9-2) Lipase (73-393) U/L TSH (0.300-4.500) uIu/ml COVID-19 Eval Order SARS-CoV-2 (PCR) NEGATIVE (Negative) Influenza Type A (PCR) Negative (Neg) Influenza Type B (PCR) Negative (Neg) RSV (RT-PCR) Negative (Neg) Administered Medications Discontinued Medications Fentanyl Citrate (Fentanyl Citrate 100 Mcg/2 Ml Vial) 50 mcg IV NOW STA Stop: 04/06/21 00:10 Last Admin: 04/06/21 00:15 Dose: 50 mcg Documented by: [id number] Fentanyl Citrate (Fentanyl Citrate 100 Mcg/2 Ml Vial) 50 mcg IV NOW STA Stop: 04/06/21 01:27 Last Admin: 04/06/21 01:37 Dose: Not Given Documented by: [id number] Sodium Chloride (Nss) 500 mls @ 999 mls/hr IV .Q31M STA Stop: 04/05/21 23:56 Last Infusion: 04/06/21 00:13 Dose: 0 mls/hr Documented by: [id number] Admin: 04/05/21 23:37 Dose: 999 mls/hr Documented by: [id number] Famotidine (Pepcid 20mg Iv Push) 20 mg in 5 mls @ 2.5 mls/min IV NOW STA Stop: 04/06/21 00:10 Last Admin: 04/06/21 00:15 Dose: 2.5 mls/min Documented by: [id number] Promethazine HCl (Phenergan) 12.5 mg in 50.5 mls @ 202 mls/hr IV NOW STA Stop: 04/06/21 01:21 Last Infusion: 04/06/21 01:37 Dose: 0 mls/hr Documented by: [id number] Admin: 04/06/21 01:21 Dose: 202 mls/hr Documented by: [id number] Sodium Chloride (Nss) 500 mls @ 125 mls/hr IV .Q4H TAISHA Stop: 05/06/21 01:14 Last Infusion: 04/06/21 02:55 Dose: 0 mls/hr Documented by: [id number] Admin: 04/06/21 01:21 Dose: 125 mls/hr Documented by: [id number] Pantoprazole Sodium 40 mg/ (Syringe) 10 mls @ 5 mls/min IV NOW STA Stop: 04/06/21 03:05 Last Admin: 04/06/21 03:11 Dose: 5 mls/min Documented by: [id number] Magnesium Sulfate/Dextrose (Magnesium Sulfate / D5w) 1 gm in 100 mls @ 50 mls/hr IV ONE ONE Stop: 04/06/21 06:06 Last Infusion: 04/06/21 07:51 Dose: 0 mls/hr Documented by: [id number] Admin: 04/06/21 04:18 Dose: 50 mls/hr Documented by: [id number] Ertapenem (Invanz) 10 mls @ 2 mls/min IV NOW STA Stop: 04/06/21 04:57 Last Admin: 04/06/21 05:35 Dose: 2 mls/min Documented by: [id number] Potassium Chloride (K Fermin / Wtr) 10 meq in 100 mls @ 100 mls/hr IV ONE ONE Stop: 04/06/21 08:14 Last Admin: 04/06/21 07:57 Dose: 100 mls/hr Documented by: [id number] Potassium Chloride (K Fermin / Wtr) 10 meq in 100 mls @ 100 mls/hr IV ONE STA Stop: 04/06/21 06:09 Last Infusion: 04/06/21 07:52 Dose: 0 mls/hr Documented by: [id number] Admin: 04/06/21 06:16 Dose: 100 mls/hr Documented by: [id number] Ioversol (Optiray 300 100ml) 90 ml IV ONCE ONE Stop: 04/06/21 03:02 Last Admin: 04/06/21 03:02 Dose: 90 ml Documented by: [id number] Metoclopramide HCl (Metoclopramide Hcl Inj 5 Mg/Ml 2 Ml Vial) 10 mg IV NOW STA Stop: 04/06/21 02:54 Last Admin: 04/06/21 03:11 Dose: 10 mg Documented by: [id number] Ondansetron HCl (Ondansetron Inj 2 Mg/Ml 2 Ml Vial) 4 mg IV NOW STA Stop: 04/05/21 23:27 Last Admin: 04/05/21 23:37 Dose: 4 mg Documented by: [id number] Potassium Chloride (Potassium Chloride Crtab 20 Meq Tabcr) 20 meq PO NOW STA Stop: 04/06/21 02:55 Last Admin: 04/06/21 03:57 Dose: Not Given Documented by: [id number] Imaging Data Radiologist's Impression: Abdomen/Pelvis CT 04/06/21 02:55 CT SCAN OF THE ABDOMEN AND PELVIS WITH IV CONTRAST CLINICAL HISTORY: Generalized abdominal pain. Nausea and vomiting. COMPARISON STUDY: Abdominal CT dated 10/15/2019. TECHNIQUE: Following the IV administration of 90 cc of Optiray 300, CT scan of the abdomen and pelvis is performed from the lung bases to the proximal femora. Images are reviewed in the axial, sagittal, and coronal planes. IV contrast was administered without complication. A dose lowering technique was utilized adhering to the principles of ALARA. CT DOSE: 1500.31 mGy.cm FINDINGS: Lung bases: The heart is normal in size and without pericardial effusion. The lung bases are clear noting mild bibasilar atelectasis. There is a small hiatal hernia. Liver: The contrast-enhanced liver is enlarged, measuring 21.6 cm in length. The liver demonstrates diffusely diminished attenuation consistent with hepatic steatosis. There is no intrahepatic biliary ductal dilatation. The hepatic veins and portal veins are patent. Gallbladder: Surgically absent noting clips in the gallbladder fossa. Spleen: Normal in size and attenuation. Pancreas: Unremarkable. Adrenal glands: Bilateral adrenal nodules measure up to 1.9 cm. These are similar to previous. Kidneys: The contrast enhanced kidneys are normal in size and without hydronephrosis. The kidneys enhance symmetrically. Abdominal vasculature: The abdominal aorta is normal in course and caliber noting mild atherosclerotic calcification. Bowel: There is moderate sigmoid diverticulosis. There is wall thickening with pericolonic infiltration and fluid involving the proximal sigmoid colon consistent with acute diverticulitis. The small bowel loops are distended and fluid-filled measuring up to 4.4 cm diameter. There is a transition to decompressed loops of small bowel in the left lower quadrant adjacent to the acute diverticulitis seen on image #[id number]. Small foci of extraluminal gas are suggested in this region (image #[id number], and there are surrounding infiltration and fluid. No definite fistulous tract is identified. The appendix is well- visualized and normal. Peritoneum: No abdominal ascites is identified. Tiny foci of intraperitoneal free air are seen adjacent to acute diverticulitis in the left lower quadrant. See above. There is a fat-containing supraumbilical hernia seen on image #124. Lymphadenopathy: None. Pelvic viscera: The bladder is normal as visualized. The uterus is surgically absent. No adnexal lesion is seen. Skeletal structures: The skeletal structures are osteopenic. There is mild lumbosacral spondylosis. Sclerotic change is noted in the sacroiliac joints and pubic symphysis. No lytic or blastic lesions are seen. IMPRESSION: 1. Findings are consistent with acute perforated diverticulitis of the sigmoid colon. 2. No organized fluid collection is seen to indicate abscess. 3. There is a small bowel obstruction, with the transition point in the left lower quadrant adjacent to the sigmoid diverticulitis. This is likely related to adjacent inflammation. No fistulous tract is clearly identified. 4. Hepatomegaly and hepatic steatosis. 5. Additional findings as above. ACT 112: Negative or not required by law. Electronically signed by: Abdirizak Samayoa M.D. 04/06/2021 8:34 AM Discharge Plan Visit Data Chief Complaint: Abdominal Pain Stated Complaint: RELEASED YESTERDAY FROM HOSP/ NOT ANY BETTER ED Provider: Jacquelyn Buckley Discharge Problem: Epigastric abdominal pain, Nausea Patient Disposition: Admitted As Inpatient Discharge Instructions Interventions: ED Discharge Assessment Last Done: 04/06/21 06:20
[2021-04-06] MEDS ORDERED: PROMETHAZINE 12.5 MG/50.5 ML BAG IV STA (01:07)
[2021-04-06] MEDS ORDERED: SODIUM CHLORIDE 0.9% 500 ML IV SCH (01:15)
[2021-04-06 02:37] LABS: Partial Thromboplastin Time 26.8 Seconds (21.0-31.0)
[2021-04-06 02:45] LABS: Magnesium 1.7 mg/dl (1.8-2.4); Thyroid Stimulating Hormone 2.19 uIu/ml (0.300-4.500)
[2021-04-06] MEDS ORDERED: METOCLOPRAMIDE HCL INJ 5 MG/ML 2 ML VIAL IV STA (02:53)
[2021-04-06] MEDS ORDERED: POTASSIUM CHLORIDE CRTAB 20 MEQ TABCR PO STA (02:54)
--- NOTE | 2021-04-06 02:55 | History & Physical Report ---
Date of Service April 06, 2021 Assessment & Plan (1) Abdominal pain: Multifactorial: Esophagitis from nausea/vomiting symptoms possibly from oral Cipro Flagyl intolerance, hx GERD Complicated diverticulitis, failed outpatient treatment No sepsis for now Hyponatremia, hypokalemia secondary to poor p.o. intake, home diuretic contributory hypertension, elevated secondary to discomfort hx PAT/SVT status post ablation, patient NSR DM2 diet-controlled, well-controlled as of recent hemoglobin A1c of 5.05 Apr 2021 Medical telemetry to facilitate IV beta-augustina administration while patient strictly n.p.o. given complicated diverticulitis Ertapenem for complicated diverticulitis Surgery consult Re: complicated diverticulitis (Patient already seen by Dr. Lind at the ER.) Parenteral administration of patient's home H2 augustina and PPI for GERD/esophagitis while strictly n.p.o. Replace electrolytes ISS BG goal 1 10-1 40, may need basal insulin DVT prophylaxis per Lovenox subcu Full code Text document was generated using Gyn[employer] voice recognition software. It may contain grammatical or spelling errors. Kindly contact undersigned for clarification of any documentation item in question. History of Present Illness Chief Complaint: Epigastric pain, nausea Primary Care Provider: Estefany Asencio DO History obtained from patient and records. Medical history significant for hypertension, hyperlipidemia, hx PAT/SVT status post ablation, aortic regurgitation, DM2 diet-controlled, GERD. Last confinement April 01-[address] for [address]itis on outpatient CT. Patient presented with lower abdominal pain. Patient discharged home on oral Cipro Flagyl course 2 days ago. A day after discharge to home, patient noted achy epigastric discomfort different from diverticulitis pain. Nausea, emesis symptoms. Could not keep anything down. No fever, no chills. Patient denies chest pain, S OB. Intractable discomfort at the ER. Medical History as above 2015 colonoscopy showed tortuous colon, diverticulosis. 2019 EGD was normal. 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 Allergies Allergy/AdvReac Type Severity Reaction Status Date / Time amoxicillin [From Augmentin] Allergy Severe Rash Verified 04/05/21 23:21 clavulanic acid Allergy Severe Rash Verified 04/05/21 23:21 [From Augmentin] gabapentin Allergy Intermediate Severe rash Verified 04/05/21 23:21 hydrocodone AdvReac Severe Nausea/ Verified 04/05/21 23:21 vomiting oxycodone AdvReac Intermediate GI SYMPTOMS Verified 04/05/21 23:21 Home Medications Medication Instructions Recorded Confirmed Type albuterol sulfate 2.5 mg INHALATION Q4H PRN 04/01/21 04/05/21 History aspirin 81 mg PO DAILY 04/01/21 04/05/21 History ciprofloxacin HCl [Cipro] 500 mg PO BID 04/01/21 04/05/21 History famotidine [Pepcid] 20 mg PO DAILY 04/01/21 04/05/21 History fluticasone propionate 2 spray INTRANASAL DAILY PRN 04/01/21 04/05/21 History lisinopril 5 mg PO DAILY 04/01/21 04/05/21 History metoprolol succinate [Toprol XL] 12.5 mg PO DAILY 04/01/21 04/05/21 History metronidazole [Flagyl] 500 mg PO TID 04/01/21 04/05/21 History omeprazole 20 mg PO BID 04/01/21 04/05/21 History ondansetron HCl 4 mg PO Q8H PRN 04/01/21 04/05/21 History triamterene-hydrochlorothiazid 1 cap PO DAILY 04/01/21 04/05/21 History ondansetron 4 mg PO Q8H PRN #20 tab 04/04/21 04/05/21 Rx potassium chloride 10 meq PO DAILY #30 tab 04/04/21 04/05/21 Rx Past Med/Surg History Medical History (Updated 04/06/21 @ 06:15 by Pablo Jesus MD) Diabetes BORDERLINE-DIET MANAGED GERD (gastroesophageal reflux disease) Hiatal hernia HTN (hypertension) Obese Tachycardia Thoracic back pain Thoracic spinal stenosis Vomiting Surgical History H/O cardiac radiofrequency ablation 2012 H/O knee surgery OPEN LEFT KNEE History of cardiac cath 2003-NO STENTS NEEDED History of carpal tunnel release of both wrists R/L History of cholecystectomy History of colonoscopy History of esophagogastroduodenoscopy (EGD) History of hysterectomy History of shoulder surgery R/L History of total knee arthroplasty R/L Family History Grandmother (Paternal) Family history of diabetes mellitus Brother Family history of diabetes mellitus Social History Smoking Status: Never smoker Second Hand Exposure: No; Hx Alcohol Use: No Hx Substance Use: No Preferred Language: Wallisian Communication Ability: Effective Visual Impairment: No Limitations [employer] Required: No Beliefs That Will Affect Care: None marital status: Current Living Situation: Family Current Living Situation Comment: LIVES WITH SON AND DAUGHTER IN LAW current occupational status: retired Feels Safe at Home: Yes Assistive Devices: None Review of Systems Review of Systems: As per HPI, all 10 systems reviewed, all other ROS negative Physical Exam Physical Exam: GENERAL: Uncomfortable, morbidly obese, no respiratory distress SKIN: Normal color, warm HEENT: [place] palpebral conjunctivae, no ptosis, dry buccal mucosa NECK : Supple, short neck, no tenderness CHEST : CTA, no tenderness HEART : RRR, no obvious murmurs ABDOMEN: distention, epigastric tenderness EXTREMITIES : Minimal LE swelling, no LE tenderness, no other conspicuous deformities noted NEUROLOGIC : Coherent, no facial asymmetry, no other gross focality Results & Data Results & Data ([facility]) Vital Signs (Past 12 Hours) Vital Signs Temp Pulse Pulse Resp BP BP Pulse Ox 04/06/21 02:00 75 21 149/71 H 96 04/06/21 01:30 77 18 152/91 H 95 04/06/21 01:01 66 15 140/72 97 04/06/21 00:12 67 17 113/76 91 04/06/21 00:00 70 18 113/76 96 04/05/21 23:02 36.6 C 78 20 161/77 H 96 Laboratory Results Laboratory Results WBC 11.66 K/uL (4.8-10.8) H 04/05/21 23:26 RBC 4.65 M/uL (4.2-5.4) 04/05/21 23:26 Hgb 12.8 g/dL (12.0-16.0) 04/05/21 23:26 Hct 37.2 % (37-47) 04/05/21: MCV 80.0 fL (80-100) 04/05/21 23: MCH 27.5 pg (25-34) 04/05/21: MCHC 34.4 g/dL (32-36) 04/05/21: RDW Std Deviation 37.5 fL (36.4-46.3) 04/05/21: RDW Coeff of Howard 12.9 % (11.5-14.5) 04/05/21: Plt Count 288 K/uL (130-400) 04/05/21: MPV 9.9 fL (7.4-10.4) 04/05/21: Immature Gran % (Auto) 0.2 % 04/05/21: Neut % (Auto) 76.2 % 04/05/21: Lymph % (Auto) 9.7 % 04/05/21: [place] % (Auto) 12.8 % 04/05/21: Eos % (Auto) 0.9 % 04/05/21: Baso % (Auto) 0.2 % 04/05/21: Neut # (Auto) 8.90 K/uL (1.4-6.5) H 04/05/21: Lymph # (Auto) 1.13 K/uL (1.2-3.4) L 04/05/21: [place] # (Auto) 1.49 K/uL (0.11-0.59) H 04/05/21: Eos # (Auto) 0.10 K/uL (0-0.5) 04/05/21: Baso # (Auto) 0.02 K/uL (0-0.2) 04/05/21: Immature Gran # (Auto) 0.02 K/uL (0.00-0.02) 04/05/21: APTT 26.8 Seconds (21.0-31.0) 04/05/21: PTT Ratio 1.0 04/05/21 23: Sodium 129 mmol/L (136-145) L 04/05/21: Potassium 3.4 mmol/L (3.5-5.1) L 04/05/21 23:26 Chloride 93 mmol/L (98-107) L 04/05/21 23:26 Carbon Dioxide 27 mmol/L (21-32) 04/05/21 23: Anion Gap 9.0 (3-11) 04/05/21 23:26 BUN 8 mg/dl (7-18) 04/05/21 23: Creatinine 0.68 mg/dl (0.6-1.2) 04/05/21 23: Est Cr Clr Drug Dosing 87.0 ml/min 04/05/21 23:26 Est GFR ( Amer) 102.7 04/05/21 23: Est GFR (Non-Af Amer) 88.6 04/05/21 23: BUN/Creatinine Ratio 11.9 (10-20) 04/05/21 23: Glucose 115 mg/dl (70-99) H 04/05/21 23:26 Osmolality 266 mOsm/kg (280-300) L 04/05/21 23: Calcium 9.2 mg/dl (8.5-10.1) 04/05/21 23: Magnesium 1.7 mg/dl (1.8-2.4) L 04/05/21 23:26 Total Bilirubin 0.5 mg/dl (0.2-1) 04/05/21 23: AST 22 U/L (15-37) 04/05/21 23:26 ALT 30 U/L (12-78) 04/05/21 23:26 Alkaline Phosphatase 93 U/L (45-117) 04/05/21 23: Troponin I < 0.015 ng/ml (0-0.045) 04/06/21 01:00 Total Protein 7.6 gm/dl (6.4-8.2) 04/05/21 23: Albumin 3.4 gm/dl (3.4-5.0) 04/05/21 23: Globulin 4.2 gm/dl (2.5-4.0) H 04/05/21 23:26 Albumin/Globulin Ratio 0.8 (0.9-2) L 04/05/21 23: Lipase 87 U/L (73-393) 04/05/21 23: TSH 2.190 uIu/ml (0.300-4.500) 04/05/21 23:26 Diagnostic Findings Chest x-ray as per my interpretation: Atelectasis, elevated right hemidiaphragm CT abdomen pelvis initial read: There is circumferential wall thickening of the sigmoid colon which contains numerous diverticula with moderate surrounding inflammatory change, compatible with acute diverticulitis. There are a few adjacent foci of what appeared to be extraluminal air, suspicious for contained perforation. No drainable fluid collection or organized abscess is seen. Fluid-filled dilated loops of small bowel throughout the abdomen with decompressed bowel loops distally and a transition point adjacent to the inflamed sigmoid colon could represent a reactive ileus versus a partial small bowel obstruction. Small hiatal hernia. Suggestion of mild asymmetric wall thickening of the distal esophagus. EGD could be performed to exclude an underlying lesion. Status post cholecystectomy. 15 mm indeterminate left adrenal nodule, as seen previously EKG as per my interpretation : Rate 75, NSR, normal axis T wave abnormalities septal leads
[2021-04-06] MEDS ORDERED: OPTIRAY 300 100mL IV ONE (03:01)
[2021-04-06] MEDS ORDERED: PANTOprazole 40 MG in SYRINGE 0 ML IV STA (03:04)
[2021-04-06 03:54] LABS: Influenza A virus by PCR Negative (Neg); Influenza B virus by PCR Negative (Neg); RSV by PCR Negative (Neg); SARS CoV2 RNA(COVID-19) InHosp NEGATIVE (Negative)
[2021-04-06] MEDS ORDERED: MAGNESIUM SULFATE / D5W 1 GM/100 ML BAG IV ONE (04:07)
[2021-04-06] MEDS ORDERED: ERTAPENEM SODIUM 10 ML IV STA (04:53)
[2021-04-06] MEDS ORDERED: ACETAMINOPHEN 1,000 MG/100 ML VIAL IV PRN (05:01)
[2021-04-06] MEDS ORDERED: LORazepam 0.5 MG/1 ML VIAL IV PRN (05:02)
[2021-04-06] MEDS ORDERED: HYDROmorphone INJ 0.5 MG/0.5 ML SYR IV PRN (05:02)
[2021-04-06] MEDS ORDERED: PROMETHAZINE HCL 12.5 MG in SODIUM CHLORIDE 0.9% 50 ML IV PRN (05:02)
[2021-04-06] MEDS ORDERED: POTASSIUM CHLORIDE / WTR 10 MEQ/100 ML PLCT IV STA (05:10)
[2021-04-06] MEDS ORDERED: POTASSIUM CHLORIDE / WTR 10 MEQ/100 ML PLCT IV ONE ×2 (05:15→07:15)
--- NOTE | 2021-04-06 06:01 | Surgery Consultation ---
Date of Consultation April 06, 2021 Assessment & Plan (1) Diverticulitis large intestine: pt is a 70 year-old female who presents to ER with one week history abdominal pain with nausea and vomiting, IMP: acute diverticulitis, contained perforation, base on pt has no significant abdominal pain, no fever, WBC 11,000, no emergent surgery indication now, I agree with hospitalist admit pt to hospital , conservative treatment, NPO, IV fluid and IV antibiotic, correct low Na, K, magnesium, repeat labs tomorrow morning, I also talked pt about surgery treatment if she develops severe abdominal pain, fever, high WBC, pt understood, she agrees with the plan, I answered all questions, will F/U, D/W Dr. Jesus. Thanks, Present on Admission?: Yes History of Present Illness History of Present Illness History of Present Illness Chief Complaint: Epigastric pain, nausea Primary Care Provider: Estefany Asencio DO History obtained from patient and records. Medical history significant for hypertension, hyperlipidemia, hx PAT/SVT status post ablation, aortic regurgitation, DM2 diet-controlled, GERD. Last confinement April 01-[address] for [address] on outpatient CT. Patient presented with lower abdominal pain. Patient discharged home on oral Cipro Flagyl course 2 days ago. A day after discharge to home, patient noted achy epigastric discomfort different from diverticulitis pain. Nausea, emesis symptoms. Could not keep anything down. No fever, no chills. Patient denies chest pain, S OB. I ( Damaris Lind MD) got a call consult for diverticulitis, I reviewed pt's H/P , labs, CT scan with pt, pt said that pt had lower abdominal pain 2 days ago, now pt has no abdominal pain, no diarrhea, no fever, Intractable discomfort at the ER. Medical History as above 2016 colonoscopy showed tortuous colon, diverticulosis. 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 Allergies Allergy/AdvReac Type Severity Reaction Status Date / Time amoxicillin [From Augmentin] Allergy Severe Rash Verified 04/05/21 23:21 clavulanic acid Allergy Severe Rash Verified 04/05/21 23:21 [From Augmentin] gabapentin Allergy Intermediate Severe rash Verified 04/05/21 23:21 hydrocodone AdvReac Severe Nausea/ Verified 04/05/21 23:21 vomiting oxycodone AdvReac Intermediate GI SYMPTOMS Verified 04/05/21 23:21 Home Medications Medication Instructions Recorded Confirmed Type albuterol sulfate 2.5 mg INHALATION Q4H PRN 04/01/21 04/05/21 History aspirin 81 mg PO DAILY 04/01/21 04/05/21 History ciprofloxacin HCl [Cipro] 500 mg PO BID 04/01/21 04/05/21 History famotidine [Pepcid] 20 mg PO DAILY 04/01/21 04/05/21 History fluticasone propionate 2 spray INTRANASAL DAILY PRN 04/01/21 04/05/21 History lisinopril 5 mg PO DAILY 04/01/21 04/05/21 History metoprolol succinate [Toprol XL] 12.5 mg PO DAILY 04/01/21 04/05/21 History metronidazole [Flagyl] 500 mg PO TID 04/01/21 04/05/21 History omeprazole 20 mg PO BID 04/01/21 04/05/21 History ondansetron HCl 4 mg PO Q8H PRN 04/01/21 04/05/21 History triamterene-hydrochlorothiazid 1 cap PO DAILY 04/01/21 04/05/21 History ondansetron 4 mg PO Q8H PRN #20 tab 04/04/21 04/05/21 Rx potassium chloride 10 meq PO DAILY #30 tab 04/04/21 04/05/21 Rx Past Med/Surg History Medical History (Updated 04/05/21 @ 00:05 by Kiki Espinoza) Diabetes BORDERLINE-DIET MANAGED GERD (gastroesophageal reflux disease) Hiatal hernia HTN (hypertension) Obese Tachycardia Thoracic back pain Thoracic spinal stenosis Vomiting Surgical History H/O cardiac radiofrequency ablation 2012 H/O knee surgery OPEN LEFT KNEE History of cardiac cath 2003-NO STENTS NEEDED History of carpal tunnel release of both wrists R/L History of cholecystectomy History of colonoscopy History of esophagogastroduodenoscopy (EGD) History of hysterectomy History of shoulder surgery R/L History of total knee arthroplasty R/L Family History Grandmother (Paternal) Family history of diabetes mellitus Brother Family history of diabetes mellitus Social History Smoking Status: Never smoker Second Hand Exposure: No; Hx Alcohol Use: No Hx Substance Use: No Preferred Language: Cypriot Communication Ability: Effective Visual Impairment: No Limitations Artillery Officer Required: No Beliefs That Will Affect Care: None marital status: Current Living Situation: Family Current Living Situation Comment: LIVES WITH SON AND DAUGHTER IN LAW current occupational status: retired Feels Safe at Home: Yes Assistive Devices: None Allergies Allergy/AdvReac Type Severity Reaction Status Date / Time amoxicillin [From Augmentin] Allergy Severe Rash Verified 04/05/21 23:21 clavulanic acid Allergy Severe Rash Verified 04/05/21 23:21 [From Augmentin] gabapentin Allergy Intermediate Severe rash Verified 04/05/21 23:21 hydrocodone AdvReac Severe Nausea/ Verified 04/05/21 23:21 vomiting oxycodone AdvReac Intermediate GI SYMPTOMS Verified 04/05/21 23:21 Home Medications Medication Instructions Recorded Confirmed Type albuterol sulfate 2.5 mg INHALATION Q4H PRN 04/01/21 04/05/21 History aspirin 81 mg PO DAILY 04/01/21 04/05/21 History ciprofloxacin HCl [Cipro] 500 mg PO BID 04/01/21 04/05/21 History famotidine [Pepcid] 20 mg PO DAILY 04/01/21 04/05/21 History fluticasone propionate 2 spray INTRANASAL DAILY PRN 04/01/21 04/05/21 History lisinopril 5 mg PO DAILY 04/01/21 04/05/21 History metoprolol succinate [Toprol XL] 12.5 mg PO DAILY 04/01/21 04/05/21 History metronidazole [Flagyl] 500 mg PO TID 04/01/21 04/05/21 History omeprazole 20 mg PO BID 04/01/21 04/05/21 History ondansetron HCl 4 mg PO Q8H PRN 04/01/21 04/05/21 History triamterene-hydrochlorothiazid 1 cap PO DAILY 04/01/21 04/05/21 History ondansetron 4 mg PO Q8H PRN #20 tab 04/04/21 04/05/21 Rx potassium chloride 10 meq PO DAILY #30 tab 04/04/21 04/05/21 Rx Patient History Medical History (Updated 04/06/21 @ 06:04 by Damaris Lind MD) Diabetes BORDERLINE-DIET MANAGED GERD (gastroesophageal reflux disease) Hiatal hernia HTN (hypertension) Obese Tachycardia Thoracic back pain Thoracic spinal stenosis Vomiting Surgical History H/O cardiac radiofrequency ablation 2012 H/O knee surgery OPEN LEFT KNEE History of cardiac cath 2003-NO STENTS NEEDED History of carpal tunnel release of both wrists R/L History of cholecystectomy History of colonoscopy History of esophagogastroduodenoscopy (EGD) History of hysterectomy History of shoulder surgery R/L History of total knee arthroplasty R/L Family History Grandmother (Paternal) Family history of diabetes mellitus Brother Family history of diabetes mellitus Social History Smoking Status: Never smoker Second Hand Exposure: No; Hx Alcohol Use: No Hx Substance Use: No Preferred Language: Cypriot Communication Ability: Effective Visual Impairment: No Limitations Artillery Officer Required: No Beliefs That Will Affect Care: None marital status: Current Living Situation: Family Current Living Situation Comment: LIVES WITH SON AND DAUGHTER IN LAW current occupational status: retired Feels Safe at Home: Yes Assistive Devices: None Physical Exam Constitutional: WD/WN, vitals as above well developed and well nourished Eyes: PERRL, conjunctivae normal, anicteric sclerae ENMT: external ear and nose normal, oropharynx normal Neck: trachea midline, no thyromegaly Respiratory: normal respiratory effort, lungs clear to auscultation normal respiratory effort Cardiovascular: RRR, no murmur, no edema Rate/Rhythm: regular rate and regular rhythm Gastrointestinal (Abdomen): normal bowel sounds, soft, nontender, no hepatosplenomegaly Percussion/Palpation: abdomen soft NT, ND, BS + Musculoskeletal: no cyanosis or clubbing, extremities motor strength 5/5 Skin: no rashes, warm and dry Neurologic: awake Psychiatric: Orientation: alert and oriented x 3 Results & Data ([facility]) Vital Signs (Past 12 Hours) Vital Signs Temp Pulse Pulse Resp BP BP Pulse Ox 04/06/21 05:38 80 12 95 04/06/21 05:02 67 17 95 04/06/21 05:01 67 21 138/66 96 04/06/21 03:16 77 18 159/77 H 98 04/06/21 02:00 75 21 149/71 H 96 04/06/21 01:30 77 18 152/91 H 95 04/06/21 01:01 66 15 140/72 97 04/06/21 00:12 67 17 113/76 91 04/06/21 00:00 70 18 113/76 96 04/05/21 23:02 36.6 C 78 20 161/77 H 96 Laboratory Results Abnormal lab results 04/05/21 04/05/21 04/05/21 Range/Units 23:26 23:26 23:26 WBC 11.66 H (4.8-10.8) K/uL Neut # (Auto) 8.90 H (1.4-6.5) K/uL Lymph # (Auto) 1.13 L (1.2-3.4) K/uL [place] # (Auto) 1.49 H (0.11-0.59) K/uL Sodium 129 L (136-145) mmol/L Potassium 3.4 L (3.5-5.1) mmol/L Chloride 93 L (98-107) mmol/L Glucose 115 H (70-99) mg/dl Osmolality 266 L (280-300) mOsm/kg Magnesium 1.7 L (1.8-2.4) mg/dl Globulin 4.2 H (2.5-4.0) gm/dl Albumin/Globulin Ratio 0.8 L (0.9-2) Diagnostic Findings CT scan- diverticulitis, with extraluminal air, contained perforation,
[2021-04-06 06:28] LABS: Appearance Urine Clear (Clear); Bilirubin Urine Negative (Negative); Blood Urine Negative (Negative); Color Urine Yellow; Glucose Urine UA Negative (Negative); Ketones Urine 1+ (Negative); Leukocyte Esterase Urine Negative (Negative); Nitrite Urine Negative (Negative); Protein Urine Negative (Negative); Urobilinogen Urine Negative (Negative)
[2021-04-06] MEDS ORDERED: POTASSIUM CHLORIDE 40 MEQ in SODIUM CHLORIDE 0.9% 1000ML 1,000 ML IV SCH (07:15)
[2021-04-06] MEDS ORDERED: DEXTROSE 50% 50 ML SYRINGE IV PRN (07:49)
[2021-04-06] MEDS ORDERED: GLUCOSE 10 TABS/TUBE PO PRN (07:49)
[2021-04-06] MEDS ORDERED: GLUCOSE 40% GEL 15 GM TUBE PO PRN (07:49)
[2021-04-06] MEDS ORDERED: CARBOHYDRATES FOR HYPOGLYCEMIA PO PRN (07:49)
[2021-04-06] MEDS ORDERED: FLUTICASONE PROPIONATE NA SPR 16 GM BTL PRN (07:49)
[2021-04-06] MEDS ORDERED: GLUCAGON FOR INJ 1 MG VIAL SQ PRN (07:49)
[2021-04-06] MEDS ORDERED: ERTAPENEM CONSULT ACTIVE PRN (07:57)
--- NOTE | 2021-04-06 08:35 | CT Scan Report ---
CT SCAN OF THE ABDOMEN AND PELVIS WITH IV CONTRAST CLINICAL HISTORY: Generalized abdominal pain. Nausea and vomiting. COMPARISON STUDY: Abdominal CT dated 10/15/2019. TECHNIQUE: Following the IV administration of 90 cc of Optiray 300, CT scan of the abdomen and pelvi s is performed from the lung bases to the proximal femora. Images are reviewed in the axial, sagittal , and coronal planes. IV contrast was administered without complication. A dose lowering technique wa s utilized adhering to the principles of ALARA. CT DOSE: 1500.31 mGy.cm FINDINGS: Lung bases: The heart is normal in size and without pericardial effusion. The lung bases are clear no ting mild bibasilar atelectasis. There is a small hiatal hernia. Liver: The contrast-enhanced liver is enlarged, measuring 21.6 cm in length. The liver demonstrates d iffusely diminished attenuation consistent with hepatic steatosis. There is no intrahepatic biliary d uctal dilatation. The hepatic veins and portal veins are patent. Gallbladder: Surgically absent noting clips in the gallbladder fossa. Spleen: Normal in size and attenuation. Pancreas: Unremarkable. Adrenal glands: Bilateral adrenal nodules measure up to 1.9 cm. These are similar to previous. Kidneys: The contrast enhanced kidneys are normal in size and without hydronephrosis. The kidneys enh ance symmetrically. Abdominal vasculature: The abdominal aorta is normal in course and caliber noting mild atheroscleroti c calcification. Bowel: There is moderate sigmoid diverticulosis. There is wall thickening with pericolonic infiltrati on and fluid involving the proximal sigmoid colon consistent with acute diverticulitis. The small bow el loops are distended and fluid-filled measuring up to 4.4 cm diameter. There is a transition to dec ompressed loops of small bowel in the left lower quadrant adjacent to the acute diverticulitis seen o n image #[id number]. Small foci of extraluminal gas are suggested in this region (image #[id number], and there are surrounding infiltration and fluid. No definite fistulous tract is identified. The appendix is well -visualized and normal. Peritoneum: No abdominal ascites is identified. Tiny foci of intraperitoneal free air are seen adjace nt to acute diverticulitis in the left lower quadrant. See above. There is a fat-containing supraumbi lical hernia seen on image #124. Lymphadenopathy: None. Pelvic viscera: The bladder is normal as visualized. The uterus is surgically absent. No adnexal lesi on is seen. Skeletal structures: The skeletal structures are osteopenic. There is mild lumbosacral spondylosis. S clerotic change is noted in the sacroiliac joints and pubic symphysis. No lytic or blastic lesions ar e seen. IMPRESSION: 1. Findings are consistent with acute perforated diverticulitis of the sigmoid colon. 2. No organized fluid collection is seen to indicate abscess. 3. There is a small bowel obstruction, with the transition point in the left lower quadrant adjacent to the sigmoid diverticulitis. This is likely related to adjacent inflammation. No fistulous tract is clearly identified. 4. Hepatomegaly and hepatic steatosis. 5. Additional findings as above. ACT 112: Negative or not required by law. Electronically signed by: Abdirizak Samayoa M.D. 04/06/2021 8:34 AM
--- NOTE | 2021-04-06 08:59 | XRay Report ---
XR chest 1V portable CLINICAL HISTORY: hyponatremia COMPARISON STUDY: Chest radiograph and chest CT October 15, 2019. FINDINGS: Lung volumes are normal. Lungs are clear. No pulmonary nodules are identified although sens itivity is diminished given radiographic technique. There is no pneumothorax or pleural effusion. Car diac size is normal. Mediastinal contours are normal. There is no evidence for pulmonary edema. Patie nt is mildly rotated. IMPRESSION: No acute cardiopulmonary findings. ACT 112: Negative or not required by law. Electronically signed by: Ashu Smith M.D. 04/06/2021 8:58 AM
[2021-04-06] MEDS ORDERED: FAMOTIDINE 20 MG in SYRINGE 3 ML IV SCH (09:00)
[2021-04-06] MEDS: INSULIN ASPART 100 UNITS/ML 3 ML PEN SC SCH ×4 (09:48→18:55)
[2021-04-06 10:09] LABS: Basophils # (auto) 0.02 K/uL (0-0.2); Basophils % (auto) 0.2 %; Eosinophils # (auto) 0.15 K/uL (0-0.5); Eosinophils % (auto) 1.7 %; Hematocrit (blood only) 34.9 % (37-47); Hemoglobin 11.9 g/dL (12.0-16.0); Immature Granulocytes # (auto) 0.02 K/uL (0.00-0.02); Immature Granulocytes % (auto) 0.2 %; Lymphocytes # (auto) 1.25 K/uL (1.2-3.4); Lymphocytes % (auto) 14.2 %; Mean Corpuscular Hemoglobin 26.9 pg (25-34); Mean Corpuscular Hgb Conc 34.1 g/dL (32-36); Mean Platelet Volume 9.7 fL (7.4-10.4); Monocytes # (auto) 1.28 K/uL (0.11-0.59); Monocytes % (auto) 14.6 %; Neutrophils # (auto) 6.06 K/uL (1.4-6.5); Neutrophils % (auto) 69.1 %; Platelet Count 251 K/uL (130-400); RDW Coefficient of Variation 12.8 % (11.5-14.5); RDW Standard Deviation 37.2 fL (36.4-46.3); Red Blood Count 4.42 M/uL (4.2-5.4); White Blood Count 8.78 K/uL (4.8-10.8)
[2021-04-06] MEDS: ENOXAPARIN INJ 40 MG/0.4 ML SYR SQ SCH (10:22)
[2021-04-06 10:26] LABS: BUN Creatinine Ratio 10.9 (10-20); Calcium 9.5 mg/dl (8.5-10.1); Creatinine Clr Calc Pharmacy 96.9 ml/min; Est GFR (African American) 106.5; Est GFR (Non-African American) 91.9; Magnesium 2.1 mg/dl (1.8-2.4); Potassium 3.5 mmol/L (3.5-5.1)
[2021-04-06] MEDS: ERTAPENEM SODIUM 1,000 MG in SODIUM CHLORIDE 0.9% 50 ML IV SCH (11:45)
--- NOTE | 2021-04-06 11:51 | Electrocardiogram Report ---
Test Reason : Blood Pressure : / mmHG Vent. Rate : 073 BPM Atrial Rate : 073 BPM P-R Int : 162 ms QRS Dur : 088 ms QT Int : 404 ms P-R-T Axes : 071 044 049 degrees QTc Int : 445 ms Normal sinus rhythm Normal ECG When compared with ECG of 01-APR-2021 15:01, No significant change was found Confirmed by Master Peace ([id number]) on 04/06/2021 11:50:46 AM Referred By: REFERRED SELF Confirmed By:Master Peace
[2021-04-06] MEDS: METOPROLOL TARTRATE 1 MG/ML VIAL IV SCH ×2 (12:08→19:07)
--- NOTE | 2021-04-06 16:14 | Hospitalist Progress Note ---
Date of Service April 06, 2021 Assessment & Plan (1) Diverticulitis of colon with perforation: (2) Abdominal pain: Present on admission with abdominal pain associated with nausea and vomiting Recently discharge for acute diverticulitis CT abd/pelvis showed findings are consistent with acute perforated diverticulitis of the sigmoid colon. small bowel obstruction, with the transition point in the left lower quadrant adjacent to the sigmoid diverticulitis. Surgery on board No indication for emergent surgery as per Surgery Continue conservative management with IV Ertapenem Will keep NPO for now Continue monitor closely (2) Hypokalemia: K 3.4 on admission K replaced Continue monitor BMP HTN (hypertension): BP fluctuated Continue lisinopril 5 mg daily, metoprolol succinate 12.5 mg daily, Maxide 1 Daily, baby aspirin (4) Diabetes: Most recent hab1c 5.8 on 04/02/21 Not on any diabetes med Continue monitor BS (5) GERD (gastroesophageal reflux disease): Continue omeprazole and famotidine (6) Obese: BMI 44.9, diet and exercise encouraged (7) DVT prophylaxis: Continue Lovenox subq Code Status Full code Admission and Anticipated Discharge Date Admission Date: April 06, 2021 Subjective Pt was seen and examined for follow up of abdominal pain Sitting in bed with no distress Pt said that she feels much better today She said that she is not having any abdominal pain Denies any chest pain, palpitation, dizziness and SOB Review of Systems Review of Systems: All systems reviewed & are unremarkable except as noted in Subjective Physical Exam Physical Exam: General- No acute distress Head- atraumatic Eyes- PERRL, EOMI, ENT- oropharynx clear Neck- supple, no JVD Lungs- clear to auscultation Heart- regular rhythm; no murmur Abdomen- normal bowel sounds, soft, nontender Extremities- no calf tenderness Neuro- alert, oriented x 3; PERRL, EOMI; no facial palsy; no dysarthria Skin- warm & dry Results & Data Results & Data ([facility]) Vital Signs (Past 12 Hours) Vital Signs Temp Pulse Pulse Resp BP BP BP 04/06/21 16:06 36.6 C 71 20 147/79 H 04/06/21 15:47 73 04/06/21 12:11 36.7 C 77 20 170/78 H 04/06/21 10:29 36.8 C 73 20 138/83 04/06/21 07:57 36.8 C 73 20 138/83 04/06/21 07:49 76 04/06/21 06:00 70 22 04/06/21 05:38 80 12 04/06/21 05:02 67 17 04/06/21 05:01 67 21 138/66 Pulse Ox 04/06/21 16:06 97 04/06/21 15:47 04/06/21 12:11 97 04/06/21 10:29 96 04/06/21 07:57 96 04/06/21 07:49 04/06/21 06:00 94 04/06/21 05:38 95 04/06/21 05:02 95 04/06/21 05:01 96
[2021-04-06] MEDS ORDERED: Nursing to Pharmacy Communication SCH (17:45)
[2021-04-06] MEDS: METOPROLOL SUCC 25MG EXT REL TAB PO SCH (18:56)
[2021-04-06] MEDS ORDERED: ACETAMINOPHEN 325 MG TAB PO PRN (19:30)
[2021-04-06] MEDS ORDERED: ACETAMINOPHEN W/CODEINE #3 1 TAB PO PRN (19:30)
[2021-04-06] MEDS: PANTOprazole 40 MG TAB PO SCH (20:42)
[2021-04-06] MEDS: FAMOTIDINE 20 MG in SYRINGE 3 ML IV SCH (20:42)
[2021-04-06] MEDS ORDERED: PANTOprazole 40 MG in SYRINGE 0 ML IV SCH (21:00)
[2021-04-07] MEDS: INSULIN ASPART 100 UNITS/ML 3 ML PEN SC SCH ×5 (00:10→20:22)
[2021-04-07] MEDS: POTASSIUM CHLORIDE 40 MEQ in D5W AND NSS 1,000 ML IV SCH (01:24)
[2021-04-07 07:57] LABS: Hematocrit (blood only) 34.6 % (37-47); Hemoglobin 11.8 g/dL (12.0-16.0); Mean Corpuscular Hemoglobin 27.1 pg (25-34); Mean Corpuscular Hgb Conc 34.1 g/dL (32-36); Mean Corpuscular Volume 79.5 fL (80-100); Mean Platelet Volume 9.5 fL (7.4-10.4); Platelet Count 272 K/uL (130-400); RDW Coefficient of Variation 13.1 % (11.5-14.5); RDW Standard Deviation 37.9 fL (36.4-46.3); Red Blood Count 4.35 M/uL (4.2-5.4); White Blood Count 5.92 K/uL (4.8-10.8)
[2021-04-07] MEDS: ENOXAPARIN INJ 40 MG/0.4 ML SYR SQ SCH (07:57)
[2021-04-07] MEDS: PANTOprazole 40 MG TAB PO SCH ×2 (07:58→21:22)
[2021-04-07] MEDS: METOPROLOL SUCC 25MG EXT REL TAB PO SCH (07:58)
[2021-04-07] MEDS: ERTAPENEM SODIUM 1,000 MG in SODIUM CHLORIDE 0.9% 50 ML IV SCH (08:03)
[2021-04-07] MEDS: FAMOTIDINE 20 MG in SYRINGE 3 ML IV SCH ×2 (08:03→21:22)
[2021-04-07 08:25] LABS: Calcium 9.1 mg/dl (8.5-10.1); Creatinine Clr Calc Pharmacy 101.8 ml/min; Est GFR (African American) 108.2; Est GFR (Non-African American) 93.4; Potassium 3.6 mmol/L (3.5-5.1)
--- NOTE | 2021-04-07 11:18 | Surgery Progress Note ---
Date of Service April 07, 2021 Assessment & Plan (1) Diverticulitis large intestine: With microperforation avss no leukocytosis no abdominal pain, n,v Plan: Clear liquid diet, advised to go slowly Continue IV Abx Continue pain management as needed Encouraged ambulating hallway Continue medical management Will need colonoscopy in [address] Lind has seen patient and agrees with above. Admission and Anticipated Discharge Date Admission Date: April 06, 2021 Subjective feeling much better no abdominal pain had some last night, Tylenol helped no nausea or vomiting, some belching passing gas and soft stools, no blood Physical Exam Constitutional: well developed, well nourished and + obese; no acute distress Respiratory: normal respiratory effort; no respiratory distress Gastrointestinal (Abdomen): Inspection/Auscultation: abdomen normal to inspection; abdomen not distended Percussion/Palpation: abdomen soft; abdomen nontender, no guarding and abdomen not rigid Skin: no rashes, warm and dry Psychiatric: A+Ox3, euthymic affect Results & Data ([facility]) Vital Signs (Past 12 Hours) Vital Signs Temp Pulse Pulse Pulse Resp BP BP 04/07/21 07:45 36.5 C 67 18 154/77 H 04/07/21 07:30 74 04/07/21 03:18 36.7 C 80 18 157/83 H Pulse Ox 04/07/21 07:45 94 04/07/21 07:30 04/07/21 03:18 98 Laboratory Results 04/07/21 04/07/21 04/07/21 Range/Units 07:23 07:23 06:00 WBC 5.92 (4.8-10.8) K/uL RBC 4.35 (4.2-5.4) M/uL Hgb 11.8 L (12.0-16.0) g/dL Hct 34.6 L (37-47) % MCV 79.5 L (80-100) fL MCH 27.1 (25-34) pg MCHC 34.1 (32-36) g/dL RDW Std Deviation 37.9 (36.4-46.3) fL RDW Coeff of Howard 13.1 (11.5-14.5) % Plt Count 272 (130-400) K/uL MPV 9.5 (7.4-10.4) fL Sodium 136 (136-145) mmol/L Potassium 3.6 (3.5-5.1) mmol/L Chloride 102 (98-107) mmol/L Carbon Dioxide 27 (21-32) mmol/L Anion Gap 7.0 (3-11) BUN 7 (7-18) mg/dl Creatinine 0.58 L (0.6-1.2) mg/dl Est Cr Clr Drug Dosing 101.8 ml/min Est GFR ( Amer) 108.2 Est GFR (Non-Af Amer) 93.4 BUN/Creatinine Ratio 12.0 (10-20) Glucose 85 (70-99) mg/dl POC Glucose 83 (70-99) mg/dl Calcium 9.1 (8.5-10.1) mg/dl 04/07/21 04/06/21 04/06/21 Range/Units 00:07 18:50 11:47 WBC (4.8-10.8) K/uL RBC (4.2-5.4) M/uL Hgb (12.0-16.0) g/dL Hct (37-47) % MCV (80-100) fL MCH (25-34) pg MCHC (32-36) g/dL RDW Std Deviation (36.4-46.3) fL RDW Coeff of Howard (11.5-14.5) % Plt Count (130-400) K/uL MPV (7.4-10.4) fL Sodium (136-145) mmol/L Potassium (3.5-5.1) mmol/L Chloride (98-107) mmol/L Carbon Dioxide (21-32) mmol/L Anion Gap (3-11) BUN (7-18) mg/dl Creatinine (0.6-1.2) mg/dl Est Cr Clr Drug Dosing ml/min Est GFR ( Amer) Est GFR (Non-Af Amer) BUN/Creatinine Ratio (10-20) Glucose (70-99) mg/dl POC Glucose 77 83 88 (70-99) mg/dl Calcium (8.5-10.1) mg/dl
--- NOTE | 2021-04-07 17:28 | Hospitalist Progress Note ---
Date of Service April 07, 2021 Assessment & Plan (1) Diverticulitis of colon with perforation: (2) Abdominal pain: Present on admission with abdominal pain associated with nausea and vomiting Recently discharge for acute diverticulitis CT abd/pelvis showed findings are consistent with acute perforated diverticulitis of the sigmoid colon. small bowel obstruction, with the transition point in the left lower quadrant adjacent to the sigmoid diverticulitis. Surgery on board No indication for emergent surgery as per Surgery Continue conservative management with IV Ertapenem Case discussed with Surgery and started on clear liquid diet Continue monitor closely (2) Hypokalemia: K 3.4 on admission K 3.6 today Stable HTN (hypertension): Continue lisinopril 5 mg daily, metoprolol succinate 12.5 mg daily, Maxide 1 Daily Continue monitor BP (4) Diabetes: Most recent hab1c 5.8 on 04/02/21 Not on any diabetes med Continue monitor BS (5) GERD (gastroesophageal reflux disease): Continue omeprazole and famotidine (6) Obese: BMI 44.9, diet and exercise encouraged (7) DVT prophylaxis: Continue Lovenox subq Code Status Full code Admission and Anticipated Discharge Date Admission Date: April 06, 2021 Subjective Pt was seen and examined for follow up of abdominal pain Sitting in bed with no distress Pt said that she feels fine She said that she is not having any abdominal pain Denies any chest pain, palpitation, dizziness and SOB Review of Systems Review of Systems: All systems reviewed & are unremarkable except as noted in Subjective Physical Exam Physical Exam: General- No acute distress Head- atraumatic Eyes- PERRL, EOMI, ENT- oropharynx clear Neck- supple, no JVD Lungs- clear to auscultation Heart- regular rhythm; no murmur Abdomen- normal bowel sounds, soft, nontender Extremities- no calf tenderness Neuro- alert, oriented x 3; PERRL, EOMI; no facial palsy; no dysarthria Skin- warm & dry Results & Data Results & Data ([facility]) Vital Signs (Past 12 Hours) Vital Signs Temp Pulse Pulse Resp BP BP Pulse Ox 04/07/21 15:29 36.8 C 66 20 148/74 H 96 04/07/21 14:55 65 04/07/21 11:18 36.5 C 71 20 150/81 H 93 04/07/21 07:45 36.5 C 67 18 154/77 H 94 04/07/21 07:30 74
[2021-04-08] MEDS: POTASSIUM CHLORIDE 40 MEQ in D5W AND NSS 1,000 ML IV SCH (00:35)
[2021-04-08] MEDS ORDERED: POTASSIUM CHLORIDE CRTAB 20 MEQ TABCR PO STA (03:54)
[2021-04-08] MEDS ORDERED: MAGNESIUM SULFATE / D5W 1 GM/100 ML BAG IV ONE (04:30)
[2021-04-08 04:33] LABS: Basophils # (auto) 0.02 K/uL (0-0.2); Basophils % (auto) 0.3 %; Eosinophils # (auto) 0.17 K/uL (0-0.5); Eosinophils % (auto) 2.9 %; Hematocrit (blood only) 33.6 % (37-47); Hemoglobin 11.5 g/dL (12.0-16.0); Immature Granulocytes # (auto) 0.01 K/uL (0.00-0.02); Immature Granulocytes % (auto) 0.2 %; Lymphocytes # (auto) 1.69 K/uL (1.2-3.4); Lymphocytes % (auto) 28.8 %; Mean Corpuscular Hemoglobin 27.4 pg (25-34); Mean Corpuscular Hgb Conc 34.2 g/dL (32-36); Mean Platelet Volume 9.5 fL (7.4-10.4); Monocytes # (auto) 0.63 K/uL (0.11-0.59); Monocytes % (auto) 10.8 %; Neutrophils # (auto) 3.34 K/uL (1.4-6.5); Platelet Count 300 K/uL (130-400); RDW Standard Deviation 38.1 fL (36.4-46.3); White Blood Count 5.86 K/uL (4.8-10.8)
[2021-04-08] MEDS: METOPROLOL SUCC 25MG EXT REL TAB PO SCH (04:52)
[2021-04-08 04:54] LABS: BUN Creatinine Ratio 9.1 (10-20); Calcium 8.4 mg/dl (8.5-10.1); Creatinine Clr Calc Pharmacy 101.8 ml/min; Est GFR (African American) 108.2; Est GFR (Non-African American) 93.4; Magnesium 1.9 mg/dl (1.8-2.4); Potassium 3.7 mmol/L (3.5-5.1)
[2021-04-08 04:56] LABS: Albumin Globulin Ratio 0.9 (0.9-2); Bilirubin,Total 0.4 mg/dl (0.2-1); Globulin 3.2 gm/dl (2.5-4.0); Total Protein 6.2 gm/dl (6.4-8.2)
[2021-04-08] MEDS: PANTOprazole 40 MG TAB PO SCH ×2 (07:49→20:26)
[2021-04-08] MEDS: ENOXAPARIN INJ 40 MG/0.4 ML SYR SQ SCH (07:49)
[2021-04-08] MEDS: INSULIN ASPART 100 UNITS/ML 3 ML PEN SC SCH ×4 (07:57→20:38)
[2021-04-08] MEDS: ERTAPENEM SODIUM 1,000 MG in SODIUM CHLORIDE 0.9% 50 ML IV SCH (08:06)
[2021-04-08] MEDS: FAMOTIDINE 20 MG in SYRINGE 3 ML IV SCH ×2 (08:06→20:26)
--- NOTE | 2021-04-08 13:49 | Surgery Progress Note ---
Date of Service April 08, 2021 Assessment & Plan (1) Diverticulitis large intestine: With microperforation avss no leukocytosis no abdominal pain, n,v Plan: Low fiber diet, advised to go slowly Continue IV Abx - will need total of 3 weeks of antibiotics given development of microperforation on cipro/flagyl. Continue pain management as needed Encouraged ambulating hallway Continue medical management Outpatient colonoscopy will need to be scheduled at least 8 weeks from now in order to allow microperforation to heal. Dr. Mcbride has seen and examined patient, agrees with above. Admission and Anticipated Discharge Date Admission Date: April 06, 2021 Subjective feeling good, just got a shower no abdominal pain tolerated clear liquids, is hungry and would like to eat more passing gas and soft stool, no blood no nausea or vomiting Physical Exam Constitutional: WD/WN, vitals as above + obese Respiratory: normal respiratory effort; no respiratory distress and no labored breathing Gastrointestinal (Abdomen): Inspection/Auscultation: abdomen normal to inspection; abdomen not distended Percussion/Palpation: abdomen soft; abdomen nontender, no guarding and abdomen not rigid Skin: no rashes, warm and dry Psychiatric: A+Ox3, euthymic affect Results & Data ([facility]) Vital Signs (Past 12 Hours) Vital Signs Temp Pulse Pulse Pulse Resp BP BP 04/08/21 11:20 36.6 C 73 18 174/95 H 04/08/21 10:20 36.6 C 70 20 152/86 H 04/08/21 07:43 69 04/08/21 07:23 37.0 C 75 16 179/98 H 04/08/21 04:49 80 180/96 H 04/08/21 03:39 36.6 C 81 17 161/80 H Pulse Ox 04/08/21 11:20 96 04/08/21 10:20 96 04/08/21 07:43 04/08/21 07:23 95 04/08/21 04:49 04/08/21 03:39 96 Laboratory Results 04/08/21 04/08/21 04/08/21 Range/Units 11:14 07:35 04:12 WBC (4.8-10.8) K/uL RBC (4.2-5.4) M/uL Hgb (12.0-16.0) g/dL Hct (37-47) % MCV (80-100) fL MCH (25-34) pg MCHC (32-36) g/dL RDW Std Deviation (36.4-46.3) fL RDW Coeff of Howard (11.5-14.5) % Plt Count (130-400) K/uL MPV (7.4-10.4) fL Immature Gran % (Auto) % Neut % (Auto) % Lymph % (Auto) % [place] % (Auto) % Eos % (Auto) % Baso % (Auto) % Neut # (Auto) (1.4-6.5) K/uL Lymph # (Auto) (1.2-3.4) K/uL [place] # (Auto) (0.11-0.59) K/uL Eos # (Auto) (0-0.5) K/uL Baso # (Auto) (0-0.2) K/uL Immature Gran # (Auto) (0.00-0.02) K/uL Sodium 138 (136-145) mmol/L Potassium 3.7 (3.5-5.1) mmol/L Chloride 105 (98-107) mmol/L Carbon Dioxide 30 (21-32) mmol/L Anion Gap 3.0 (3-11) BUN 5 L (7-18) mg/dl Creatinine 0.58 L (0.6-1.2) mg/dl Est Cr Clr Drug Dosing 101.8 ml/min Est GFR ( Amer) 108.2 Est GFR (Non-Af Amer) 93.4 BUN/Creatinine Ratio 9.1 L (10-20) Glucose 98 (70-99) mg/dl POC Glucose 96 94 (70-99) mg/dl Calcium 8.4 L (8.5-10.1) mg/dl Magnesium 1.9 (1.8-2.4) mg/dl Total Bilirubin 0.4 (0.2-1) mg/dl AST 12 L (15-37) U/L ALT 21 (12-78) U/L Alkaline Phosphatase 73 (45-117) U/L Total Protein 6.2 L (6.4-8.2) gm/dl Albumin 3.0 L (3.4-5.0) gm/dl Globulin 3.2 (2.5-4.0) gm/dl Albumin/Globulin Ratio 0.9 (0.9-2) 04/08/21 04/07/21 04/07/21 Range/Units 04:12 20:10 17:05 WBC 5.86 (4.8-10.8) K/uL RBC 4.20 (4.2-5.4) M/uL Hgb 11.5 L (12.0-16.0) g/dL Hct 33.6 L (37-47) % MCV 80.0 (80-100) fL MCH 27.4 (25-34) pg MCHC 34.2 (32-36) g/dL RDW Std Deviation 38.1 (36.4-46.3) fL RDW Coeff of Howard 13.0 (11.5-14.5) % Plt Count 300 (130-400) K/uL MPV 9.5 (7.4-10.4) fL Immature Gran % (Auto) 0.2 % Neut % (Auto) 57.0 % Lymph % (Auto) 28.8 % [place] % (Auto) 10.8 % Eos % (Auto) 2.9 % Baso % (Auto) 0.3 % Neut # (Auto) 3.34 (1.4-6.5) K/uL Lymph # (Auto) 1.69 (1.2-3.4) K/uL [place] # (Auto) 0.63 H (0.11-0.59) K/uL Eos # (Auto) 0.17 (0-0.5) K/uL Baso # (Auto) 0.02 (0-0.2) K/uL Immature Gran # (Auto) 0.01 (0.00-0.02) K/uL Sodium (136-145) mmol/L Potassium (3.5-5.1) mmol/L Chloride (98-107) mmol/L Carbon Dioxide (21-32) mmol/L Anion Gap (3-11) BUN (7-18) mg/dl Creatinine (0.6-1.2) mg/dl Est Cr Clr Drug Dosing ml/min Est GFR ( Amer) Est GFR (Non-Af Amer) BUN/Creatinine Ratio (10-20) Glucose (70-99) mg/dl POC Glucose 95 87 (70-99) mg/dl Calcium (8.5-10.1) mg/dl Magnesium (1.8-2.4) mg/dl Total Bilirubin (0.2-1) mg/dl AST (15-37) U/L ALT (12-78) U/L Alkaline Phosphatase (45-117) U/L Total Protein (6.4-8.2) gm/dl Albumin (3.4-5.0) gm/dl Globulin (2.5-4.0) gm/dl Albumin/Globulin Ratio (0.9-2)
--- NOTE | 2021-04-08 19:28 | Hospitalist Progress Note ---
Date of Service April 08, 2021 Assessment & Plan (1) Diverticulitis of colon with perforation: (2) Abdominal pain: Present on admission with abdominal pain associated with nausea and vomiting Recently discharge for acute diverticulitis CT abd/pelvis showed findings are consistent with acute perforated diverticulitis of the sigmoid colon. small bowel obstruction, with the transition point in the left lower quadrant adjacent to the sigmoid diverticulitis. Surgery on board No indication for emergent surgery as per Surgery Continue conservative management with IV Ertapenem Diet advanced to low fiber Case discussed with Surgery that recommended to complete 21 days course of abx Plan to transition to PO abx on discharge Continue monitor closely (2) Hypokalemia: K 3.4 on admission K 3.7 today Stable HTN (hypertension): Will resume lisinopril 5 mg and Maxide 1 Daily Continue monitor BP (4) Diabetes: Most recent hab1c 5.8 on 04/02/21 Not on any diabetes med Continue monitor BS (5) GERD (gastroesophageal reflux disease): Continue omeprazole and famotidine (6) Obese: BMI 44.9, diet and exercise encouraged (7) DVT prophylaxis: Continue Lovenox subq Code Status Full code Disposition Possible discharge in am Admission and Anticipated Discharge Date Admission Date: April 06, 2021 Subjective Pt was seen and examined for follow up of abdominal pain Sitting in bed with no distress Pt said that she feels fine Denies any chest pain, palpitation, dizziness and SOB Review of Systems Review of Systems: All systems reviewed & are unremarkable except as noted in Subjective Physical Exam Physical Exam: General- No acute distress Head- atraumatic Eyes- PERRL, EOMI, ENT- oropharynx clear Neck- supple, no JVD Lungs- clear to auscultation Heart- regular rhythm; no murmur Abdomen- normal bowel sounds, soft, nontender Extremities- no calf tenderness Neuro- alert, oriented x 3; PERRL, EOMI; no facial palsy; no dysarthria Skin- warm & dry Results & Data Results & Data ([facility]) Vital Signs (Past 12 Hours) Vital Signs Temp Pulse Pulse Resp BP BP Pulse Ox 04/08/21 14:53 67 04/08/21 14:38 36.6 C 79 18 182/85 H 97 04/08/21 11:20 36.6 C 73 18 174/95 H 96 05/11/21 10:20 36.6 C 70 20 152/86 H 96 04/08/21 07:43 69
[2021-04-09] MEDS ORDERED: MELATONIN 3 MG TAB PO STA (02:39)
[2021-04-09 07:30] LABS: Hematocrit (blood only) 36.9 % (37-47); Hemoglobin 12.6 g/dL (12.0-16.0); Mean Corpuscular Hemoglobin 27.4 pg (25-34); Mean Corpuscular Hgb Conc 34.1 g/dL (32-36); Mean Corpuscular Volume 80.2 fL (80-100); Mean Platelet Volume 9.3 fL (7.4-10.4); Platelet Count 325 K/uL (130-400); RDW Coefficient of Variation 13.1 % (11.5-14.5); RDW Standard Deviation 38.6 fL (36.4-46.3)
[2021-04-09] MEDS: PANTOprazole 40 MG TAB PO SCH (07:44)
[2021-04-09] MEDS: ENOXAPARIN INJ 40 MG/0.4 ML SYR SQ SCH (07:44)
[2021-04-09] MEDS: ERTAPENEM SODIUM 1,000 MG in SODIUM CHLORIDE 0.9% 50 ML IV SCH (07:44)
[2021-04-09] MEDS: FAMOTIDINE 20 MG in SYRINGE 3 ML IV SCH (07:44)
[2021-04-09] MEDS: METOPROLOL SUCC 25MG EXT REL TAB PO SCH (07:45)
[2021-04-09] MEDS: INSULIN ASPART 100 UNITS/ML 3 ML PEN SC SCH ×2 (07:50→11:43)
[2021-04-09 08:02] LABS: BUN Creatinine Ratio 10.4 (10-20); Calcium 9.1 mg/dl (8.5-10.1); Creatinine Clr Calc Pharmacy 84.1 ml/min; Est GFR (African American) 101.7; Est GFR (Non-African American) 87.8
[2021-04-09 08:06] LABS: Potassium 3.8 mmol/L (3.5-5.1)
[2021-04-09] MEDS ORDERED: TRIAMTERENE/HCTZ 37.5/25MG CAP PO SCH (09:00)
[2021-04-09] MEDS ORDERED: lisinopril 5 MG TAB PO SCH (09:00)
[2021-04-09 11:37] VITALS: BP 148/90; PULSE 72; TEMP 97.9; O2SAT 98
--- NOTE | 2021-04-09 12:51 | Hospitalist Progress Note ---
Date of Service April 09, 2021 Assessment & Plan (1) Diverticulitis of colon with perforation: (2) Abdominal pain: Present on admission with abdominal pain associated with nausea and vomiting Recently discharge for acute diverticulitis CT abd/pelvis showed findings are consistent with acute perforated diverticulitis of the sigmoid colon. small bowel obstruction, with the transition point in the left lower quadrant adjacent to the sigmoid diverticulitis. Surgery on board No indication for emergent surgery as per Surgery Continued conservative management with IV Ertapenem Diet advanced to low fiber which she is tolerating well Case discussed with Surgery that recommended to complete 21 days course of abx (from this admission) Plan to transition to PO abx on discharge - discussed closely with pharmacy and the patient, she was nauseous on previous medications, possibly due to Flagyl but not sure if she was nauseous from Cipro or Flagyl. She also has documented allergy to Augmentin/rash. She says that previously she was taking Augmentin without any issues however then she developed rash on her lower extremities. After discussion with pharmacist, will discharge on clindamycin and cefdinir (2) Hypokalemia: K 3.4 on admission K 3.8 today Stable HTN (hypertension): Resumed lisinopril 5 mg and Maxide 1 Daily Continue monitor BP (4) Diabetes: Most recent hab1c 5.8 on 04/02/21 Not on any diabetes med Continue monitor BS (5) GERD (gastroesophageal reflux disease): Continue omeprazole and famotidine (6) Obese: BMI 44.9, diet and exercise encouraged (7) DVT prophylaxis: Continue Lovenox subq Code Status Full code Disposition : Plan to DC home, PCP follow up Admission and Anticipated Discharge Date Admission Date: April 06, 2021 Subjective Pt was seen and examined for follow up of abdominal pain /complicated radiculitis Sitting in bed in no distress She is feeling well, tolerating a low fiber diet, inquiring about going home Denies any fevers, chills, abdominal pain, chest pain, palpitation, dizziness and SOB Review of Systems Review of Systems: All systems reviewed & are unremarkable except as noted in HPI & below Constitutional: no fever and no chills Respiratory: no cough and no dyspnea Cardiovascular: no chest pain and no palpitations Gastrointestinal: no abdominal pain, no nausea and no vomiting Physical Exam Physical Exam: General- No acute distress Head- atraumatic Eyes- PERRL, EOMI, ENT- oropharynx clear Neck- supple, no JVD Lungs- clear to auscultation Heart- regular rhythm; no murmur Abdomen- normal bowel sounds, soft, nontender Extremities- no calf tenderness Neuro- alert, oriented x 3; PERRL, EOMI; no facial palsy; no dysarthria Skin- warm & dry Results & Data Results & Data ([facility]) Vital Signs (Past 12 Hours) Vital Signs Temp Pulse Pulse Resp BP BP Pulse Ox 04/09/21 11:35 36.6 C 72 20 148/90 H 98 04/09/21 08:03 36.4 C L 70 74 20 150/80 H 96 04/09/21 03:01 36.9 C 78 18 151/79 H 94 Laboratory Results 04/09/21 04/09/21 04/09/21 Range/Units 11:27 07:46 07:17 WBC (4.8-10.8) K/uL RBC (4.2-5.4) M/uL Hgb (12.0-16.0) g/dL Hct (37-47) % MCV (80-100) fL MCH (25-34) pg MCHC (32-36) g/dL RDW Std Deviation (36.4-46.3) fL RDW Coeff of Howard (11.5-14.5) % Plt Count (130-400) K/uL MPV (7.4-10.4) fL Sodium 137 (136-145) mmol/L Potassium 3.8 (3.5-5.1) mmol/L Chloride 103 (98-107) mmol/L Carbon Dioxide 27 (21-32) mmol/L Anion Gap 7.0 (3-11) BUN 7 (7-18) mg/dl Creatinine 0.70 (0.6-1.2) mg/dl Est Cr Clr Drug Dosing 84.1 ml/min Est GFR ( Amer) 101.7 Est GFR (Non-Af Amer) 87.8 BUN/Creatinine Ratio 10.4 (10-20) Glucose 105 H (70-99) mg/dl POC Glucose 102 H 110 H (70-99) mg/dl Calcium 9.1 (8.5-10.1) mg/dl 04/09/21 04/08/21 04/08/21 Range/Units 07:17 20:08 16:40 WBC 7.90 (4.8-10.8) K/uL RBC 4.60 (4.2-5.4) M/uL Hgb 12.6 (12.0-16.0) g/dL Hct 36.9 L (37-47) % MCV 80.2 (80-100) fL MCH 27.4 (25-34) pg MCHC 34.1 (32-36) g/dL RDW Std Deviation 38.6 (36.4-46.3) fL RDW Coeff of Howard 13.1 (11.5-14.5) % Plt Count 325 (130-400) K/uL MPV 9.3 (7.4-10.4) fL Sodium (136-145) mmol/L Potassium (3.5-5.1) mmol/L Chloride (98-107) mmol/L Carbon Dioxide (21-32) mmol/L Anion Gap (3-11) BUN (7-18) mg/dl Creatinine (0.6-1.2) mg/dl Est Cr Clr Drug Dosing ml/min Est GFR ( Amer) Est GFR (Non-Af Amer) BUN/Creatinine Ratio (10-20) Glucose (70-99) mg/dl POC Glucose 128 H 100 H (70-99) mg/dl Calcium (8.5-10.1) mg/dl Medications Administered Current Inpatient Medications Acetaminophen (Acetaminophen 325 Mg Tab) 650 mg PO Q6H PRN PRN Reason: Fever Stop: 05/06/21 19:29 Last Admin: 04/07/21 01:16 Dose: 650 mg Documented by: Acetaminophen/Codeine Phosphate (Acetaminophen W/Codeine #3 1 Tab) 1 tab PO Q4H PRN PRN Reason: Pain Stop: 05/06/21 19:29 Dextrose (Dextrose 50% 50 Ml Syringe) 25 - 50 ml IV UD PRN; Protocol PRN Reason: Hypoglycemia Protocol Stop: 05/06/21 07:48 Enoxaparin Sodium (Enoxaparin Inj 40 Mg/0.4 Ml Syr) 40 mg SQ QAM TAISHA Stop: 05/06/21 08:59 Last Admin: 04/09/21 07:44 Dose: 40 mg Documented by: Ertapenem (Ertapenem Consult Active) 1 ea N/A UD PRN PRN Reason: Consult Stop: 05/06/21 07:56 Fluticasone Propionate (Fluticasone Propionate Na Spr 16 Gm Btl) 2 sprays NA DAILY PRN PRN Reason: ALLERGIES Stop: 05/06/21 07:48 Glucagon (Glucagon For Inj 1 Mg Vial) 1 mg SQ UD PRN; Protocol PRN Reason: Hypoglycemia Protocol Stop: 05/06/21 07:48 Glucose (Glucose 10 Tabs/Tube) 4 - 8 tabs PO UD PRN; Protocol PRN Reason: Hypoglycemia Protocol Stop: 05/06/21 07:48 Glucose (Glucose 40% Gel 15 Gm Tube) 15 - 30 gm PO UD PRN; Protocol PRN Reason: Hypoglycemia Protocol Stop: 05/06/21 07:48 Hydromorphone HCl (Hydromorphone Inj 0.5 Mg/0.5 Ml Syr) 0.25 mg IV Q4H PRN PRN Reason: Pain Stop: 04/20/21 05:01 Promethazine HCl 12.5 mg/ (Sodium Chloride) 50.5 mls @ 202 mls/hr IV Q6H PRN PRN Reason: Nausea And Vomiting Stop: 05/06/21 05:01 Lorazepam (Ativan) 0.5 mg in 1 mls @ 1 mls/min IV Q4H PRN PRN Reason: Anxiety/Agitation Stop: 05/06/21 05:01 Famotidine 20 mg/ Syringe 5 mls @ 2.5 mls/min IV BID [facility] Stop: 05/06/21 20:59 Last Admin: 04/09/21 07:44 Dose: 2.5 mls/min Documented by: Ertapenem 1,000 mg/ Sodium (Chloride) 60 mls @ 100 mls/hr IV Q24H [facility] Stop: 04/16/21 08:59 Last Infusion: 04/09/21 08:30 Dose: Infused Documented by: Insulin Aspart (Insulin Aspart 100 Units/Ml 3 Ml Pen) 0 units SC ACHS [facility] Stop: 05/07/21 16:59 Last Admin: 04/09/21 11:43 Dose: Not Given Documented by: Lisinopril (Lisinopril 5 Mg Tab) 5 mg PO DAILY [facility] Stop: 05/09/21 08:59 Last Admin: 04/09/21 07:45 Dose: 5 mg Documented by: Metoprolol Succinate (Metoprolol Succ 25mg Ext Rel Tab) 12.5 mg PO QAM [facility] Stop: 05/08/21 03:54 Last Admin: 04/09/21 07:45 Dose: 12.5 mg Documented by: Miscellaneous (Carbohydrates For Hypoglycemia ) 15 - 30 gm PO UD PRN PRN Reason: Hypoglycemia Protocol Stop: 05/06/21 07:48 Pantoprazole Sodium (Pantoprazole 40 Mg Tab) 40 mg PO BID [facility] Stop: 05/06/21 20:59 Last Admin: 04/09/21 07:44 Dose: 40 mg Documented by: Triamterene/Hydrochlorothiazide (Triamterene/Hctz 37.5/25mg Cap) 1 cap PO DAILY [facility] Stop: 05/09/21 08:59 Last Admin: 04/09/21 07:44 Dose: 1 cap Documented by:
--- NOTE | 2021-04-09 15:09 | Discharge Summary ---
Date of Service April 09, 2021 Admission HPI Per Admitting Provider History obtained from patient and records. Medical history significant for hypertension, hyperlipidemia, hx PAT/SVT status post ablation, aortic regurgitation, DM2 diet-controlled, GERD. Last confinement April 01-[address] for [address]itis on outpatient CT. Patient presented with lower abdominal pain. Patient discharged home on oral Cipro Flagyl course 2 days ago. A day after discharge to home, patient noted achy epigastric discomfort different from diverticulitis pain. Nausea, emesis symptoms. Could not keep anything down. No fever, no chills. Patient denies chest pain, S OB. Intractable discomfort at the ER. Medical History as above 2015 colonoscopy showed tortuous colon, diverticulosis. 2019 EGD was normal. 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 Admission Exam Per Admitting Provider GENERAL: Uncomfortable, morbidly obese, no respiratory distress SKIN: Normal color, warm HEENT: [place] palpebral conjunctivae, no ptosis, dry buccal mucosa NECK : Supple, short neck, no tenderness CHEST : CTA, no tenderness HEART : RRR, no obvious murmurs ABDOMEN: distention, epigastric tenderness EXTREMITIES : Minimal LE swelling, no LE tenderness, no other conspicuous deformities noted NEUROLOGIC : Coherent, no facial asymmetry, no other gross focality Principal Diagnosis Complicated diverticulitis, microperforation Hyponatremia Discharge Exam General- No acute distress Head- atraumatic Eyes- PERRL, EOMI, ENT- oropharynx clear Neck- supple, no JVD Lungs- clear to auscultation Heart- regular rhythm; no murmur Abdomen- normal bowel sounds, soft, nontender Extremities- no calf tenderness Neuro- alert, oriented x 3; PERRL, EOMI; no facial palsy; no dysarthria Skin- warm & dry Discharge Data Allergies Allergy/AdvReac Type Severity Reaction Status Date / Time amoxicillin [From Augmentin] Allergy Severe Rash Verified 04/05/21 23:21 clavulanic acid Allergy Severe Rash Verified 04/05/21 23:21 [From Augmentin] gabapentin Allergy Intermediate Severe rash Verified 04/05/21 23:21 hydrocodone AdvReac Severe Nausea/ Verified 04/05/21 23:21 vomiting oxycodone AdvReac Intermediate GI SYMPTOMS Verified 04/05/21 23:21 Consultations 04/06/21 02:04 ED Decision to Admit Stat 04/06/21 04:59 Consult General Surgery Routine Ordered Studies 04/06/21 02:55 CT abd pelvis IV con only Urgent IMPRESSION: 1. Findings are consistent with acute perforated diverticulitis of the sigmoid colon. 2. No organized fluid collection is seen to indicate abscess. 3. There is a small bowel obstruction, with the transition point in the left lower quadrant adjacent to the sigmoid diverticulitis. This is likely related to adjacent inflammation. No fistulous tract is clearly identified. 4. Hepatomegaly and hepatic steatosis. 5. Additional findings as above. Hospital Course (1) Diverticulitis of colon with perforation: (2) Abdominal pain: Present on admission with abdominal pain associated with nausea and vomiting Recently discharge for acute diverticulitis CT abd/pelvis showed findings are consistent with acute perforated diverticulitis of the sigmoid colon. small bowel obstruction, with the transition point in the left lower quadrant adjacent to the sigmoid di verticulitis. Surgery on board No indication for emergent surgery as per Surgery Continued conservative management with IV Ertapenem Diet advanced to low fiber which she is tolerating well Case discussed with Surgery that recommended to complete 21 days course of abx (from this admission) Plan to transition to PO abx on discharge - discussed closely with pharmacy and the patient, she was nauseous on previous medications, possibly due to Flagyl but not sure if she was nauseous from Cipro or Flagyl. She also has documented allergy to Augmentin/rash. She says that previously she was taking Augmentin without any issues however then she developed rash on her lower extremities. After discussion with pharmacist, will discharge on clindamycin and cefdinir Patient is also currently scheduled for colonoscopy with GI, this needs to be rescheduled 8 weeks from now (2) Hypokalemia: K 3.4 on admission K 3.8 today Stable HTN (hypertension): Resumed lisinopril 5 mg and Maxide 1 Daily Continue monitor BP (4) Diabetes: Most recent hab1c 5.8 on 04/02/21 Not on any diabetes med Continue monitor BS (5) GERD (gastroesophageal reflux disease): Continue omeprazole and famotidine (6) Obese: BMI 44.9, diet and exercise encouraged (7) DVT prophylaxis: Continue Lovenox subq Code Status Full code Disposition : Plan to DC home, PCP follow up Total Time Total Time Spent Total Time Spent (In Minutes): 40 Total Time Includes: Examination of the Patient, Discharge Planning, Medication Reconciliation and Communication With Other Providers Discharge Plan Discharge Items Patient Disposition: Home - Self-Care Reason For Visit: hyponatremia,complicated diverticulitis Discharge Diagnosis: Complicated diverticulitis, microperforation Hyponatremia Activity: Per Instructions section Non-emergency contact: Primary Care Provider Call non-emergency contact if: you have any medication questions and your symptoms worsen Follow-up/Referrals: Estefany Asencio DO [Primary Care Provider] - (Date & Time 04/16/2021 11:10 AM Provider Estefany Asencio DO Department [facility] ) Diet: Low Fiber Addtl Attending Provider Instructions: Follow-up with primary care doctor, the appointment was scheduled for you for April 16. Take clindamycin and cefdinir, as prescribed, you should take these medications for next 17 days. Currently you have colonoscopy scheduled in April however this needs to be rescheduled, 8 weeks from now. We will notify the gastroenterology office. Pending Studies at Discharge: No Stand-Alone Forms: My [facility] abusix, Smoking Cessation Medications and DC Order Prescriptions: New clindamycin HCl 300 mg capsule 300 mg PO TID 17 Days Qty: 51 RF: 0 cefdinir 300 mg capsule 300 mg PO BID 17 Days Qty: 34 RF: 0 Continued albuterol sulfate 2.5 mg /3 mL (0.083 %) Solution For Nebulization 2.5 mg INHALATION Q4H PRN (Reason: Shortness Of Breath Or Wheezing) RF: 0 ondansetron HCl 4 mg Tablet 4 mg PO Q8H PRN (Reason: Nausea) RF: 0 aspirin 81 mg Tablet,Delayed Release (Dr/Ec) 81 mg PO DAILY RF: 0 triamterene-hydrochlorothiazid 37.5-25 mg capsule 1 cap PO DAILY RF: 0 famotidine [Pepcid] 20 mg tablet 20 mg PO DAILY RF: 0 omeprazole 20 mg capsule,delayed release(DR/EC) 20 mg PO BID RF: 0 lisinopril 5 mg tablet 5 mg PO DAILY RF: 0 metoprolol succinate [Toprol XL] 25 mg tablet extended release 24 hr 12.5 mg PO DAILY RF: 0 fluticasone propionate 50 mcg/actuation spray,suspension 2 spray INTRANASAL DAILY PRN (Reason: ALLERGIES) RF: 0 ondansetron 4 mg Tablet,Disintegrating 4 mg PO Q8H PRN (Reason: nausea and vomiting) Qty: 20 RF: 0 potassium chloride 10 mEq tablet extended release 10 meq PO DAILY Qty: 30 RF: 0 Discontinued metronidazole [Flagyl] 500 mg tablet 500 mg PO TID RF: 0 ciprofloxacin HCl [Cipro] 500 mg tablet 500 mg PO BID RF: 0 Discharge Orders: Discharge Order (Routine); Ordered 04/09/21 Ordered By: Jonny Lo Admission Data Admit Date/Time: 04/06/21 06:00 Attending Provider: Jonny Lo Admit Provider: Pablo Jesus Primary Care Provider: Estefany Asencio Other Providers: Pablo Jesus ; Damaris Lind ; Nathan Pedroza
--- NOTE | 2021-04-09 16:19 | Surgery Progress Note ---
Date of Service April 09, 2021 Assessment & Plan (1) Diverticulitis large intestine: With microperforation avss no leukocytosis no abdominal pain, n,v Plan: Being discharged home will need total of 3 weeks of antibiotics given development of microperforation and regression on prior antibiotics. Discussed with Dr. Lo who is to check with pharmacist given allergy to Augmentin. Outpatient colonoscopy will need to be scheduled at least 8 weeks from now in order to allow microperforation to heal. Admission and Anticipated Discharge Date Admission Date: April 06, 2021 Subjective patient was sitting up in bed, dressed, ready to be discharged states she is feeling well, no abdominal pain, tolerated diet Physical Exam Constitutional: WD/WN, vitals as above + obese Respiratory: normal respiratory effort; no respiratory distress and no labored breathing Gastrointestinal (Abdomen): Inspection/Auscultation: abdomen normal to inspection; abdomen not distended Percussion/Palpation: abdomen soft; abdomen nontender, no guarding and abdomen not rigid Skin: no rashes, warm and dry Psychiatric: A+Ox3, euthymic affect Results & Data ([facility]) Vital Signs (Past 12 Hours) Vital Signs Temp Pulse Pulse Resp BP BP Pulse Ox 04/09/21 15:15 36.6 C 70 72 20 151/79 H 148/90 H 98 04/09/21 11:35 36.6 C 72 20 148/90 H 98 04/09/21 08:03 36.4 C L 70 74 20 150/80 H 96 Laboratory Results 04/09/21 04/09/21 04/09/21 Range/Units 11:27 07:46 07:17 WBC (4.8-10.8) K/uL RBC (4.2-5.4) M/uL Hgb (12.0-16.0) g/dL Hct (37-47) % MCV (80-100) fL MCH (25-34) pg MCHC (32-36) g/dL RDW Std Deviation (36.4-46.3) fL RDW Coeff of Howard (11.5-14.5) % Plt Count (130-400) K/uL MPV (7.4-10.4) fL Sodium 137 (136-145) mmol/L Potassium 3.8 (3.5-5.1) mmol/L Chloride 103 (98-107) mmol/L Carbon Dioxide 27 (21-32) mmol/L Anion Gap 7.0 (3-11) BUN 7 (7-18) mg/dl Creatinine 0.70 (0.6-1.2) mg/dl Est Cr Clr Drug Dosing 84.1 ml/min Est GFR ( Amer) 101.7 Est GFR (Non-Af Amer) 87.8 BUN/Creatinine Ratio 10.4 (10-20) Glucose 105 H (70-99) mg/dl POC Glucose 102 H 110 H (70-99) mg/dl Calcium 9.1 (8.5-10.1) mg/dl 04/09/21 04/08/21 04/08/21 Range/Units 07:17 20:08 16:40 WBC 7.90 (4.8-10.8) K/uL RBC 4.60 (4.2-5.4) M/uL Hgb 12.6 (12.0-16.0) g/dL Hct 36.9 L (37-47) % MCV 80.2 (80-100) fL MCH 27.4 (25-34) pg MCHC 34.1 (32-36) g/dL RDW Std Deviation 38.6 (36.4-46.3) fL RDW Coeff of Howard 13.1 (11.5-14.5) % Plt Count 325 (130-400) K/uL MPV 9.3 (7.4-10.4) fL Sodium (136-145) mmol/L Potassium (3.5-5.1) mmol/L Chloride (98-107) mmol/L Carbon Dioxide (21-32) mmol/L Anion Gap (3-11) BUN (7-18) mg/dl Creatinine (0.6-1.2) mg/dl Est Cr Clr Drug Dosing ml/min Est GFR ( Amer) Est GFR (Non-Af Amer) BUN/Creatinine Ratio (10-20) Glucose (70-99) mg/dl POC Glucose 128 H 100 H (70-99) mg/dl Calcium (8.5-10.1) mg/dl
== END 2021-04-09 15:45 | disposition home or self-care (01) | DRG 392 ==
LOC: ED 22:56 → SUATTDRO 04-06 06:00 → 2W 04-06 06:00 → INTOOBSV 04-06 06:00 → 2W 04-06 06:20